=== PATIENT | female | born 1950 | race Hispanic/Latino ===

== ENCOUNTER → 2017-09-07 | Outpatient (CLI) | payer MEDICARE ==
[~2017-09-07] MED LIST: AMLO5TAB2 PO; ASPI-1197 PO; ASPI-555 PO; CARV12.511 PO; CARV25TA PO; CLOP75TA14 PO; DOXY100T2 PO; FURO20TA4 PO; FURO20TA6 PO; INSU200I SQ; Isosorbide Mono 30MG Tab Sr PO; LEVO150T11 PO; LOSA50TA2 PO; LOSA50TA37 PO; METF10004 PO; PANT40TA25 PO; RANO500T2 PO; RANO500T3 PO; SIMV20TA6 PO; SPIR25TA PO; SPIR25TA4 PO; VITAMIN D2 PO
== END | disposition home or self-care (01) ==
LOC: RAH 11:34
PROVIDERS: ATTEND Nurse Practitioner Family
DX: Z12.31 Encounter for screening mammogram for malignant neoplasm of breast (principal); M47.894 Other spondylosis, thoracic region; M51.36 Other intervertebral disc degeneration, lumbar region
CPT/HCPCS: 72070; 72100; 77067

== ENCOUNTER 2017-09-27 23:36 | Inpatient (IN) | payer MEDICARE ==
[~2017-09-27] VITALS: Ht 157.5 cm; Wt 77.4 kg
[2017-09-27] MEDS ORDERED: IOPAMIDOL-370 75 ML VIAL IV ONE (23:48)
[2017-09-28] VITALS (9 sets, daily range): BP systolic 103–128; BP diastolic 43–66
[2017-09-28 00:04] LABS: ABG BASE EXCESS -1.6 mmol/L (-2.0-3.0); ABG HCO3 22.5 mmol/L (21.0-28.0); ABG OXYGEN SATURATION 84.4 % (95.0-99.0); ABG PCO2 36 mmHg (32-45)
[2017-09-28] MEDS ORDERED: FENTANYL CITRATE PF 50 MCG/1 ML 2ML VIAL ONE (00:23)
[2017-09-28] MEDS ORDERED: FUROSEMIDE 10 MG/ML 4ML VIAL ONE ×3 (00:51→16:07)
[2017-09-28 00:59] LABS: CREATININE 0.9 mg/dL (0.5-1.5); POTASSIUM 3.9 mmol/L (3.5-5.1)
[2017-09-28 01:12] LABS: ALBUMIN 2.7 g/dL (3.5-5.0); BILIRUBIN,TOTAL 0.4 mg/dL (0.2-1.0); CREATINE KINASE MB 1.2 ng/mL (0.5-3.6); TOTAL PROTEIN, SERUM 7.5 g/dL (6.0-8.3)
[2017-09-28 01:20] LABS: BASOPHILS % (AUTO) 0.8 % (0.0-5.0); EOSINOPHILS % (AUTO) 0.6 % (0.0-8.0); HEMATOCRIT 35.6 % (36-48); MEAN CORPUSCULAR HEMOGLOBIN 31.1 pg (27.0-33.0); MEAN CORPUSCULAR HGB CONC 33.2 g/dL (32.0-36.0); MEAN CORPUSCULAR VOLUME 93.6 fL (79-99); MONOCYTES % (AUTO) 5.6 % (3.0-13.0); PLATELET COUNT (AUTO) 277 K/uL (130-400); RED CELL DISTRIBUTION WIDTH 13.6 % (11.0-15.5); WHITE BLOOD COUNT (AUTO) 11.9 K/uL (4.8-10.8)
[2017-09-28 01:34] LABS: INR 0.94 (0.85-1.15); PARTIAL THROMBOPLASTIN TIME 27.3 SEC (26.3-35.5); PROTHROMBIN TIME 9.9 SEC (9.6-11.6)
[2017-09-28 02:48] LABS: B-TYPE NATRIURETIC PEPTIDE 220 pg/mL (0-100)
[2017-09-28 03:15] LABS: APPEARANCE,URINE Cloudy (CLEAR); BILIRUBIN,URINE Negative (NEGATIVE); COLOR,URINE Yellow (YELLOW); GLUCOSE, URINE (UA) 500 mg/dL (NEGATIVE); KETONES,URINE Negative (NEGATIVE); LEUKOCYTE ESTERASE ,URINE Negative (NEGATIVE); NITRATE,URINE Negative (NEGATIVE); OCCULT BLOOD,URINE Negative (NEGATIVE); PH,URINE 5.5 (5.0-8.0); PROTEIN,URINE 300 (NEGATIVE); UROBILINOGEN,URINE 0.2 mg/dL (0.2-1.0)
[2017-09-28 03:25] LABS: BACTERIA,URINE Many /HPF (None Seen); MUCUS,URINE None Seen LPF (None Seen); RBC,URINE None Seen /HPF (0-1); SQUAMOUS EPITHELIAL CELL,UR None Seen /LPF (0-2)
[2017-09-28] MEDS ORDERED: DEXTROSE 50%-WATER 50 ML DISP.SYRIN IV PRN (04:00)
[2017-09-28] MEDS ORDERED: NITROGLYCERIN 0.4 MG SL TAB SL PRN (04:00)
[2017-09-28] MEDS ORDERED: GUAIFENESIN-DM 200/20 MG 10 ML PO PRN (04:00)
[2017-09-28] MEDS ORDERED: ACETAMINOPHEN-CODEINE 300/30MG TAB PO PRN ×2 (04:00)
[2017-09-28] MEDS ORDERED: LACTULOSE 20 GM/30 ML UDCUP PO PRN (04:00)
[2017-09-28] MEDS ORDERED: POTASSIUM CHLORIDE 20MEQ/100ML 100 ML IV PRN (04:00)
[2017-09-28] MEDS ORDERED: MORPHINE SULFATE 2 MG/ML 1ML SYG IV PRN (04:00)
[2017-09-28] MEDS ORDERED: DiphenhydrAMINE HCL 50 MG/ML VIAL IV PRN (04:00)
[2017-09-28] MEDS ORDERED: GLUCAGON 1MG KIT 1 MG ML IM PRN (04:00)
[2017-09-28] MEDS ORDERED: ONDANSETRON HCL 4 MG/2 ML VIAL IV PRN (04:00)
[2017-09-28] MEDS ORDERED: HYDRALAZINE HCL 20 MG/ML VIAL IV PRN (04:00)
[2017-09-28] MEDS ORDERED: POTASSIUM CHLORIDE 10% ELIXIR 20 MEQ/15 ML UDCUP PO PRN (04:00)
[2017-09-28] MEDS ORDERED: MORPHINE SULFATE 4 MG/1ML SYG IV PRN (04:00)
[2017-09-28] MEDS ORDERED: LIDOCAINE HCL-MPF 1% 2ML VIAL IVP PRN (04:00)
[2017-09-28] MEDS ORDERED: NITROGLYCERIN 1GM/1 INCH PACKET TD ONE (04:54)
[2017-09-28] MEDS ORDERED: HEPARIN SODIUM 5000UNIT/ML 1ML VIAL ONE (05:08)
[2017-09-28] MEDS ORDERED: HEPARIN 25000 UNITS/250 ML D5W 250 ML IV ONE (05:09)
[2017-09-28 06:15] LABS: HEMATOCRIT 34.7 % (36-48); MEAN CORPUSCULAR HEMOGLOBIN 31.9 pg (27.0-33.0); MEAN CORPUSCULAR HGB CONC 34.3 g/dL (32.0-36.0); MEAN CORPUSCULAR VOLUME 93.1 fL (79-99); NUCLEATED RED BLOOD CELLS 0.1 % (0.0-0.19); PLATELET COUNT (AUTO) 305 K/uL (130-400); RED BLOOD CELL COUNT(AUTO) 3.73 MIL/uL (4.00-5.50); RED CELL DISTRIBUTION WIDTH 13.3 % (11.0-15.5); WHITE BLOOD COUNT (AUTO) 12.3 K/uL (4.8-10.8)
[2017-09-28 06:40] LABS: POTASSIUM 3.9 mmol/L (3.5-5.1)
[2017-09-28 06:41] LABS: CREATINE KINASE MB 15.3 ng/mL (0.5-3.6); CREATININE 0.8 mg/dL (0.5-1.5)
[2017-09-28 06:42] LABS: TROPONIN I 6.76 ng/mL (0.00-0.06)
[2017-09-28 07:21] LABS: ABG BASE EXCESS -0.8 mmol/L (-2.0-3.0); ABG HCO3 23.6 mmol/L (21.0-28.0); ABG OXYGEN SATURATION 99.5 % (95.0-99.0); ABG PCO2 39 mmHg (32-45)
[2017-09-28] MEDS: INSULIN HUMULIN R 100 UNIT/ML 3ML SQ SCH ×4 (07:30→21:47)
[2017-09-28] MEDS ORDERED: ASPIRIN 325 MG TABLET ONE (08:13)
[2017-09-28] MEDS ORDERED: LOSARTAN 50 MG TABLET ONE (08:14)
[2017-09-28] MEDS ORDERED: METOPROLOL TARTRATE 25 MG TAB ONE (08:14)
[2017-09-28] MEDS ORDERED: FAMOTIDINE 20MG TAB 20 MG TAB ONE (08:14)
[2017-09-28] MEDS: FAMOTIDINE 20MG TAB 20 MG TAB PO SCH ×2 (09:00→21:46)
[2017-09-28] MEDS ORDERED: FUROSEMIDE 10 MG/ML 4ML VIAL IVP SCH (09:00)
[2017-09-28] MEDS: ASPIRIN 325 MG TABLET PO SCH (09:00)
[2017-09-28] MEDS: ENOXAPARIN SODIUM 40 MG/0.4 ML SYRINGE SQ SCH (09:00)
[2017-09-28] MEDS: METOPROLOL TARTRATE 25 MG TAB PO SCH ×2 (09:00→21:46)
[2017-09-28 10:51] LABS: INR 0.93 (0.85-1.15); PARTIAL THROMBOPLASTIN TIME 26.4 SEC (26.3-35.5); PROTHROMBIN TIME 9.8 SEC (9.6-11.6)
[2017-09-28 11:02] LABS: TROPONIN I 14.31 ng/mL (0.00-0.06)
[2017-09-28 11:07] LABS: CREATINE KINASE MB 21.4 ng/mL (0.5-3.6)
[2017-09-28] MEDS ORDERED: ASPI-555 PO (15:07)
[2017-09-28] MEDS ORDERED: PANT40TA25 PO (15:07)
[2017-09-28] MEDS ORDERED: SIMV20TA6 PO (15:07)
[2017-09-28] MEDS ORDERED: LEVO150T11 PO (15:07)
[2017-09-28] MEDS ORDERED: METF10004 PO (15:07)
[2017-09-28] MEDS ORDERED: AMLO5TAB2 PO (15:07)
[2017-09-28] MEDS ORDERED: IOPAMIDOL-370 100 ML VIAL IV ONE (15:19)
[2017-09-28] MEDS ORDERED: HEPARIN SODIUM 1000UNIT/ML 10ML VIAL ONE (15:19)
[2017-09-28] MEDS ORDERED: SODIUM BICARB 50MEQ 50ML VIAL ONE (15:19)
[2017-09-28] MEDS ORDERED: NITROGLYCERIN 5 MG/ML 10 ML VIAL IV ONE (15:19)
[2017-09-28] MEDS ORDERED: LIDOCAINE HCL 2% 20ML ONE (15:20)
[2017-09-28] MEDS ORDERED: ISOVUE-370 50ML VIAL IV ONE ×2 (15:20→15:31)
[2017-09-28] MEDS ORDERED: MORPHINE SULFATE 4 MG/1ML SYG ONE (16:10)
[2017-09-28] MEDS ORDERED: MILRINONE-D5W 20 MG/100 ML 100 ML IV ONE (16:14)
[2017-09-28] MEDS: FUROSEMIDE 10 MG/ML 4ML VIAL IV SCH (17:30)
[2017-09-28] MEDS ORDERED: CEFAZOLIN 1GM / D5W 50ML 50 ML IV SCH (18:30)
[2017-09-28] MEDS: ATORVASTATIN CALCIUM 10 MG TABLET PO SCH (21:46)
[2017-09-28] MEDS: SPIRONOLACTONE 25 MG TAB PO SCH (21:46)
[2017-09-29] MEDS: FUROSEMIDE 10 MG/ML 4ML VIAL IV SCH ×2 (00:50→09:09)
[2017-09-29 03:33] VITALS: BP 107/52
[2017-09-29 04:26] LABS: HEMATOCRIT 33.1 % (36-48); MEAN CORPUSCULAR HEMOGLOBIN 31.9 pg (27.0-33.0); MEAN CORPUSCULAR HGB CONC 34.5 g/dL (32.0-36.0); MEAN CORPUSCULAR VOLUME 92.6 fL (79-99); PLATELET COUNT (AUTO) 294 K/uL (130-400); RED BLOOD CELL COUNT(AUTO) 3.58 MIL/uL (4.00-5.50); RED CELL DISTRIBUTION WIDTH 13.5 % (11.0-15.5); WHITE BLOOD COUNT (AUTO) 10.4 K/uL (4.8-10.8)
[2017-09-29 04:41] LABS: B-TYPE NATRIURETIC PEPTIDE 474 pg/mL (0-100)
[2017-09-29 04:53] LABS: ALBUMIN 2.5 g/dL (3.5-5.0); CREATININE 1.1 mg/dL (0.5-1.5); POTASSIUM 3.5 mmol/L (3.5-5.1); THYROID STIMULATING HORMONE 4.03 uIU/mL (0.36-3.74)
[2017-09-29] MEDS ORDERED: CEFAZOLIN 1GM / D5W 50ML 50 ML IV SCH (06:00)
[2017-09-29] MEDS: POTASSIUM CHLORIDE 20 MEQ ERTAB PO PRN ×3 (06:04→12:59)
[2017-09-29] MEDS: INSULIN HUMULIN R 100 UNIT/ML 3ML SQ SCH ×4 (06:17→22:12)
[2017-09-29 08:12] VITALS: BP 115/49
[2017-09-29] MEDS ORDERED: ATORVASTATIN CALCIUM 40 MG TABLET PO SCH (09:00)
[2017-09-29] MEDS: ENOXAPARIN SODIUM 40 MG/0.4 ML SYRINGE SQ SCH (09:06)
[2017-09-29] MEDS: ASPIRIN 325 MG TABLET PO SCH (09:07)
[2017-09-29] MEDS: METOPROLOL TARTRATE 25 MG TAB PO SCH ×2 (09:07→22:04)
[2017-09-29] MEDS: SPIRONOLACTONE 25 MG TAB PO SCH ×2 (09:07→22:04)
[2017-09-29] MEDS: FAMOTIDINE 20MG TAB 20 MG TAB PO SCH ×2 (09:08→22:04)
[2017-09-29] MEDS: LOSARTAN 50 MG TABLET PO SCH (09:08)
[2017-09-29 11:55] VITALS: BP 131/63
[2017-09-29] MEDS: MILRINONE-D5W 20 MG/100 ML 100 ML IV SCH ×2 (12:59→23:11)
[2017-09-29 16:00] VITALS: BP 114/52
[2017-09-29 19:23] VITALS: BP 115/55
[2017-09-29] MEDS: ATORVASTATIN CALCIUM 10 MG TABLET PO SCH (22:04)
[2017-09-29 23:38] VITALS: BP 116/63
[2017-09-30 03:40] LABS: CREATININE 1.2 mg/dL (0.5-1.5); POTASSIUM 3.9 mmol/L (3.5-5.1)
[2017-09-30 04:00] VITALS: BP 94/46
[2017-09-30] MEDS: INSULIN HUMULIN R 100 UNIT/ML 3ML SQ SCH ×4 (06:57→21:04)
[2017-09-30 07:00] VITALS: BP 115/52
[2017-09-30] MEDS: LOSARTAN 50 MG TABLET PO SCH (08:00)
[2017-09-30] MEDS: SPIRONOLACTONE 25 MG TAB PO SCH ×2 (08:00→21:02)
[2017-09-30] MEDS: METOPROLOL TARTRATE 25 MG TAB PO SCH (08:00)
[2017-09-30] MEDS: ASPIRIN 325 MG TABLET PO SCH (08:00)
[2017-09-30] MEDS: FAMOTIDINE 20MG TAB 20 MG TAB PO SCH ×2 (08:00→21:01)
[2017-09-30] MEDS: ENOXAPARIN SODIUM 40 MG/0.4 ML SYRINGE SQ SCH (08:01)
[2017-09-30] MEDS: CLOPIDOGREL BISULFATE 75 MG TAB PO SCH (09:47)
[2017-09-30] MEDS: METOPROLOL TARTRATE 50 MG TAB PO SCH ×2 (09:47→21:02)
[2017-09-30] MEDS: FUROSEMIDE 40 MG TABLET PO SCH (09:47)
[2017-09-30 11:00] VITALS: BP 108/52
[2017-09-30 16:00] VITALS: BP 119/54
[2017-09-30 20:00] VITALS: BP 126/60
[2017-09-30] MEDS: ATORVASTATIN CALCIUM 10 MG TABLET PO SCH (21:02)
[2017-10-01] VITALS: BP 91/54
[2017-10-01 04:00] VITALS: BP 121/78
[2017-10-01] MEDS: INSULIN HUMULIN R 100 UNIT/ML 3ML SQ SCH ×3 (06:49→17:27)
[2017-10-01 07:38] VITALS: BP 111/58
[2017-10-01] MEDS: SPIRONOLACTONE 25 MG TAB PO SCH (09:09)
[2017-10-01] MEDS: LOSARTAN 50 MG TABLET PO SCH (09:09)
[2017-10-01] MEDS: CLOPIDOGREL BISULFATE 75 MG TAB PO SCH (09:09)
[2017-10-01] MEDS: ASPIRIN 325 MG TABLET PO SCH (09:09)
[2017-10-01] MEDS: FUROSEMIDE 40 MG TABLET PO SCH (09:10)
[2017-10-01] MEDS: METOPROLOL TARTRATE 50 MG TAB PO SCH (09:10)
[2017-10-01] MEDS: FAMOTIDINE 20MG TAB 20 MG TAB PO SCH (09:10)
[2017-10-01] MEDS: ENOXAPARIN SODIUM 40 MG/0.4 ML SYRINGE SQ SCH (09:11)
[2017-10-01] MEDS ORDERED: RANOLAZINE 500 MG TAB.SR.12H PO SCH (10:15)
[2017-10-01] MEDS ORDERED: ISOSORBIDE MONO 30MG TAB SR PO SCH (10:15)
[2017-10-01] MEDS ORDERED: FURO20TA6 PO (10:20)
[2017-10-01] MEDS ORDERED: Isosorbide Mono 30MG Tab Sr PO (10:20)
[2017-10-01] MEDS ORDERED: RANO500T2 PO (10:20)
[2017-10-01] MEDS ORDERED: CLOP75TA14 PO (10:20)
[2017-10-01] MEDS ORDERED: LOSA50TA2 PO (10:20)
[2017-10-01] MEDS ORDERED: CARV12.511 PO (10:20)
[2017-10-01] MEDS ORDERED: SPIR25TA PO (10:20)
[2017-10-01 11:28] VITALS: BP 100/64
[2017-10-01 16:39] VITALS: BP 122/57
[2017-10-02] MEDS ORDERED: ASPIRIN 81 MG EC TAB PO SCH (09:00)
[2017-10-02] MEDS ORDERED: FUROSEMIDE 20 MG TABLET PO SCH (09:00)
[2018-01-09] MEDS ORDERED: SPIR25TA4 PO (14:41)
[2018-01-09] MEDS ORDERED: PANT40TA25 PO (14:41)
[2018-01-09] MEDS ORDERED: LOSA50TA37 PO (14:41)
[2018-01-09] MEDS ORDERED: SIMV20TA6 PO (14:41)
[2018-01-09] MEDS ORDERED: CARV25TA PO (14:41)
[2018-01-09] MEDS ORDERED: VITAMIN D2 PO (14:41)
[2018-01-09] MEDS ORDERED: RANO500T3 PO (14:41)
[2018-01-09] MEDS ORDERED: ASPI-1197 PO (14:41)
[2018-01-09] MEDS ORDERED: INSU200I SQ ×2 (14:41)
[2018-01-09] MEDS ORDERED: FURO20TA4 PO (14:41)
[2018-01-09] MEDS ORDERED: LEVO150T11 PO (14:45)
[2018-01-09] MEDS ORDERED: METF10004 PO (14:45)
== END 2017-10-01 18:27 | disposition home or self-care (01) | DRG 280 ==
LOC: EDH 23:36 → EDHIP 09-28 03:03 → 2BH 09-28 08:51 → 2AH 09-30 20:57
PROVIDERS: ADMIT Family Medicine; ATTEND Family Medicine
PROC: 4A023N7 Measurement of Cardiac Sampling and Pressure, Left Heart, Percutaneous Approach (ICD-10-PCS; principal; 2017-09-28)
PROC: B2111ZZ Fluoroscopy of Multiple Coronary Arteries using Low Osmolar Contrast (ICD-10-PCS; 2017-09-28)
PROC: B3101ZZ Fluoroscopy of Thoracic Aorta using Low Osmolar Contrast (ICD-10-PCS; 2017-09-28)
PROC: B2151ZZ Fluoroscopy of Left Heart using Low Osmolar Contrast (ICD-10-PCS; 2017-09-28)
DX: I21.4 Non-ST elevation (NSTEMI) myocardial infarction (principal); J96.01 Acute respiratory failure with hypoxia; I50.43 Acute on chronic combined systolic (congestive) and diastolic (congestive) heart failure; I25.110 Atherosclerotic heart disease of native coronary artery with unstable angina pectoris; I11.0 Hypertensive heart disease with heart failure; E03.9 Hypothyroidism, unspecified; E11.65 Type 2 diabetes mellitus with hyperglycemia; E66.9 Obesity, unspecified; E78.5 Hyperlipidemia, unspecified; F17.200 Nicotine dependence, unspecified, uncomplicated; I25.5 Ischemic cardiomyopathy; I44.7 Left bundle-branch block, unspecified; R79.1 Abnormal coagulation profile; Z79.82 Long term (current) use of aspirin; Z95.1 Presence of aortocoronary bypass graft; Z68.31 Body mass index [BMI] 31.0-31.9, adult; Z71.6 Tobacco abuse counseling
CPT/HCPCS: 36221; 36415; 36600; 71045; 71046; 80048; 80053; 80061; 81001; 82550; 82553; 82803; 82948; 83874; 83880; 84436; 84443; 84479; 84484; 85025; 85027; 85347; 85378; 85610; 85730; 93005; 93306; 93458; 94660; 99291; C1894; J0690; J1644; J1650; J1815; J1940; J2260; J2270; J3010; J3490; Q9967

== ENCOUNTER → 2017-11-10 | Outpatient (CLI) | payer MEDICARE ==
[~2017-11-10] MED LIST changes: -SPIR25TA4 PO; +SPIR25TA6 PO
== END | disposition home or self-care (01) ==
LOC: SHCH 09:19
PROVIDERS: ATTEND Internal Medicine Cardiovascular Disease
DX: I25.10 Atherosclerotic heart disease of native coronary artery without angina pectoris (principal); I25.5 Ischemic cardiomyopathy
CPT/HCPCS: 93306

== ENCOUNTER 2018-01-11 10:00 | Observation (INO) | payer MEDICARE ==
[2018-01-09 10:00] VITALS: BP 156/81
[2018-01-09 10:08] LABS: EOSINOPHILS % (AUTO) 1.5 % (0.0-8.0); HEMATOCRIT 31.9 % (36-48); LYMPHOCYTES % (AUTO) 27.2 % (21.0-51.0); MEAN CORPUSCULAR HEMOGLOBIN 31.7 pg (27.0-33.0); MEAN CORPUSCULAR HGB CONC 33.4 g/dL (32.0-36.0); MEAN CORPUSCULAR VOLUME 94.9 fL (79-99); MONOCYTES % (AUTO) 6.2 % (3.0-13.0); NEUTROPHILS % (AUTO) 64.1 % (40.0-77.0); PLATELET COUNT (AUTO) 242 K/uL (130-400); RED BLOOD CELL COUNT(AUTO) 3.36 MIL/uL (4.00-5.50); RED CELL DISTRIBUTION WIDTH 14.1 % (11.0-15.5); WHITE BLOOD COUNT (AUTO) 8.4 K/uL (4.8-10.8)
[2018-01-09 10:12] LABS: CREATININE 1.2 mg/dL (0.5-1.5); POTASSIUM 5.3 mmol/L (3.5-5.1)
[2018-01-09 10:20] LABS: INR 0.93 (0.85-1.15); PARTIAL THROMBOPLASTIN TIME 26.2 SEC (26.3-35.5); PROTHROMBIN TIME 9.8 SEC (9.6-11.6)
[2018-01-11] VITALS (10 sets, daily range): BP systolic 82–140; BP diastolic 33–78
[~2018-01-11] VITALS: Ht 160 cm; Wt 76.2 kg
[~2018-01-11 10:00] MED LIST changes: -AMLO5TAB2 PO; -ASPI-555 PO; -CARV12.511 PO; -DOXY100T2 PO; -FURO20TA6 PO; -Isosorbide Mono 30MG Tab Sr PO; -LOSA50TA2 PO; -RANO500T2 PO; +SODIUM CHLORIDE 0.9% 1000ML 1,000 ML IV SCH; -SPIR25TA PO
[2018-01-11] MEDS ORDERED: OCTYL 2-CYANOACRYLATE 1 EACH TP ONE (16:33)
[2018-01-11] MEDS ORDERED: CEFAZOLIN 1GM / D5W 50ML 150 ML ONE (16:33)
[2018-01-11] MEDS ORDERED: BUPIVACAINE/PF 0.25% 30ML VIAL IJ ONE (16:33)
[2018-01-11] MEDS ORDERED: LIDOCAINE HCL MPF 1% 5ML VIAL ONE (16:34)
[2018-01-11] MEDS ORDERED: MIDAZOLAM HCL 1 MG/ML 2ML VIAL ONE ×3 (16:34→18:15)
[2018-01-11] MEDS ORDERED: MEPERIDINE-PF 25 MG/ML SYG ONE ×3 (16:34→18:16)
[2018-01-11] MEDS ORDERED: IODIXANOL 320 MG/ML 100 ML VIAL ONE (16:49)
[2018-01-11] MEDS ORDERED: IOHEXOL-350 50ML VIAL IV ONE (16:51)
[2018-01-11] MEDS ORDERED: DOXY100T2 PO (18:58)
[2018-01-11] MEDS ORDERED: TEMAZEPAM 30 MG CAP PO PRN (19:00)
[2018-01-11] MEDS ORDERED: ONDANSETRON HCL 4 MG/2 ML VIAL IV PRN (19:00)
[2018-01-11] MEDS ORDERED: ACETAMINOPHEN 325 MG TAB PO PRN ×2 (19:00)
[2018-01-11] MEDS ORDERED: ACETAMINOPHEN-CODEINE 300/30MG TAB PO PRN ×2 (19:00)
[2018-01-11] MEDS: METFORMIN HCL 500 MG TABLET PO SCH (19:51)
[2018-01-11] MEDS: RANOLAZINE 500 MG TAB.SR.12H PO SCH (20:59)
[2018-01-11] MEDS ORDERED: INSULIN LISPRO 100 UNIT/ML 3ML SQ SCH (21:00)
[2018-01-11] MEDS ORDERED: ATORVASTATIN CALCIUM 10 MG TABLET PO SCH (21:00)
[2018-01-11] MEDS: CARVEDILOL 25 MG TABLET PO SCH (21:04)
[2018-01-11] MEDS ORDERED: MORPHINE SULFATE 2 MG/ML 1ML SYG IM PRN (22:45)
[2018-01-11] MEDS ORDERED: MORPHINE SULFATE 4 MG/1ML SYG IV PRN (22:45)
[2018-01-12] MEDS ORDERED: MORPHINE SULFATE 2 MG/ML 1ML SYG IV PRN (02:45)
[2018-01-12] MEDS ORDERED: MORPHINE SULFATE 2 MG/ML 1ML SYG IVP PRN (03:15)
[2018-01-12 03:49] VITALS: BP 104/50
[2018-01-12] MEDS ORDERED: LEVOTHYROXINE 150 MCG TABLET PO SCH (06:30)
[2018-01-12 07:00] VITALS: BP 139/85
[2018-01-12] MEDS: RANOLAZINE 500 MG TAB.SR.12H PO SCH (08:23)
[2018-01-12] MEDS: METFORMIN HCL 500 MG TABLET PO SCH (08:24)
[2018-01-12 08:25] VITALS: BP 104/54
[2018-01-12] MEDS: CARVEDILOL 25 MG TABLET PO SCH (08:25)
[2018-01-12] MEDS ORDERED: INSULIN LISPRO 100 UNIT/ML 3ML SQ SCH (09:00)
[2018-01-12] MEDS ORDERED: CEFAZOLIN SODIUM 1 GM VIAL IVP SCH (09:00)
[2018-01-12] MEDS ORDERED: ASPIRIN 81MG TAB.CHEW PO SCH (09:00)
[2018-01-12] MEDS ORDERED: CEFAZOLIN 1GM / D5W 50ML 50 ML IV SCH (09:00)
[2018-01-12] MEDS ORDERED: FUROSEMIDE 20 MG TABLET PO SCH (09:00)
[2018-01-12] MEDS ORDERED: PANTOPRAZOLE SODIUM 40 MG TABLET.DR PO SCH (09:00)
[2018-01-12] MEDS ORDERED: LOSARTAN 50 MG TABLET PO SCH (09:00)
[2018-01-12] MEDS ORDERED: CLOPIDOGREL BISULFATE 75 MG TAB PO SCH (09:00)
[2018-01-12] MEDS ORDERED: SPIRONOLACTONE 25 MG TAB PO SCH (09:00)
[2018-01-18] MEDS ORDERED: VITAMIN D2 1.25 MG PO SCH (09:00)
== END 2018-01-12 09:45 | disposition home or self-care (01) ==
LOC: DAH 10:00 → DAHIP 10:01 → DAH 10:01 → 2AH 19:42
PROVIDERS: ADMIT Internal Medicine Cardiovascular Disease; ATTEND Internal Medicine Cardiovascular Disease
DX: I44.7 Left bundle-branch block, unspecified (principal); I25.110 Atherosclerotic heart disease of native coronary artery with unstable angina pectoris; E66.9 Obesity, unspecified; E78.5 Hyperlipidemia, unspecified; I11.0 Hypertensive heart disease with heart failure; I50.43 Acute on chronic combined systolic (congestive) and diastolic (congestive) heart failure; I25.2 Old myocardial infarction; F17.210 Nicotine dependence, cigarettes, uncomplicated; Z79.899 Other long term (current) drug therapy
CPT/HCPCS: 33225; 33249; 36415; 71046; 80048; 82948 ×4; 85025; 85610; 85730; 93005 ×2; 96374; 96375; A4218; C1769 ×2; C1882; C1894; C1895 ×2; C1900; G0378 ×24; J0690 ×2; J2175 ×3; J2250 ×3; J3490 ×2; J7030; Q9967; 99156; 99157

== ENCOUNTER → 2018-05-24 | Outpatient (CLI) | payer MEDICARE ==
[~2018-05-24] MED LIST changes: +DOXY100T2 PO; +LOSA50TA25 PO; -LOSA50TA37 PO; +METF-446 PO; -METF10004 PO; -SODIUM CHLORIDE 0.9% 1000ML 1,000 ML IV SCH
== END | disposition home or self-care (01) ==
LOC: SHCH 14:11
PROVIDERS: ATTEND Internal Medicine Cardiovascular Disease
DX: I73.9 Peripheral vascular disease, unspecified (principal); I25.10 Atherosclerotic heart disease of native coronary artery without angina pectoris; I10 Essential (primary) hypertension; M17.0 Bilateral primary osteoarthritis of knee
CPT/HCPCS: 93925

== ENCOUNTER → 2018-10-25 | Outpatient (CLI) | payer MEDICARE ==
[~2018-10-25] MED LIST changes: -LOSA50TA25 PO; +LOSA50TA64 PO
== END | disposition home or self-care (01) ==
LOC: SHCH 09:47
PROVIDERS: ATTEND Internal Medicine Cardiovascular Disease
DX: I65.23 Occlusion and stenosis of bilateral carotid arteries (principal)
CPT/HCPCS: 93880

== ENCOUNTER → 2019-05-25 | Outpatient (CLI) | payer MEDICARE ==
[~2019-05-25] MED LIST changes: -DOXY100T2 PO; +LEVO500T2 PO; +SIMV-43 PO; -SIMV20TA6 PO
== END | disposition home or self-care (01) ==
LOC: RAH 14:02
PROVIDERS: ATTEND Nurse Practitioner Family
DX: Z12.31 Encounter for screening mammogram for malignant neoplasm of breast (principal)
CPT/HCPCS: 77067

== ENCOUNTER → 2020-12-30 | Outpatient (CLI) | payer MEDICARE ==
[~2020-12-30] MED LIST changes: +CEPH500B PO; +DOXY100T2 PO; -FURO20TA4 PO; +FURO40TA7 PO; +INS7030 SQ; -INSU200I SQ; +IPRA3AMP24 IH; -LEVO500T2 PO; -PANT40TA25 PO; +PANT40TA54 PO; +PRED10B PO
== END | disposition home or self-care (01) ==
LOC: SHCH 09:15
PROVIDERS: ATTEND Internal Medicine Cardiovascular Disease
DX: R01.1 Cardiac murmur, unspecified (principal); I70.292 Other atherosclerosis of native arteries of extremities, left leg; I70.293 Other atherosclerosis of native arteries of extremities, bilateral legs
CPT/HCPCS: 93925

== ENCOUNTER → 2021-01-11 | Outpatient (CLI) | payer MEDICARE | END | disposition home or self-care (01) | LOC: SHCH 09:31 | PROVIDERS: ATTEND Internal Medicine Cardiovascular Disease | DX: I08.0 Rheumatic disorders of both mitral and aortic valves (principal); R55 Syncope and collapse; I73.9 Peripheral vascular disease, unspecified; R01.1 Cardiac murmur, unspecified | CPT/HCPCS: 93306; 93356 ==

== ENCOUNTER → 2021-06-17 | Outpatient (CLI) | payer MEDICARE | END | disposition home or self-care (01) | LOC: SHCH 10:37 | PROVIDERS: ATTEND Internal Medicine Cardiovascular Disease | DX: I08.3 Combined rheumatic disorders of mitral, aortic and tricuspid valves (principal); I27.20 Pulmonary hypertension, unspecified; I31.3 Pericardial effusion (noninflammatory); I11.9 Hypertensive heart disease without heart failure; E11.9 Type 2 diabetes mellitus without complications; E78.5 Hyperlipidemia, unspecified | CPT/HCPCS: 93005; 93306; 93356 ==

== ENCOUNTER → 2021-06-23 | Outpatient (CLI) | payer MEDICARE ==
[~2021-06-23] VITALS: Ht 157.5 cm; Wt 69.4 kg
[~2021-06-23] MED LIST changes: +REGADENOSON 0.4 MG/5 ML PF SYG IVP SCH
== END | disposition home or self-care (01) ==
LOC: SHCH 08:22
PROVIDERS: ATTEND Internal Medicine Cardiovascular Disease
DX: I25.5 Ischemic cardiomyopathy (principal); R06.00 Dyspnea, unspecified
CPT/HCPCS: 78452; 93017; 96374; A9500 ×2; J2785

== ENCOUNTER 2021-11-11 19:17 | Observation (INO) | payer MEDICARE ==
[~2021-11-11] VITALS: Ht 157.5 cm; Wt 71.7 kg
[~2021-11-11 19:17] MED LIST changes: -REGADENOSON 0.4 MG/5 ML PF SYG IVP SCH
[2021-11-11 19:45] LABS: BASOPHILS % (AUTO) 0.9 % (0.0-5.0); EOSINOPHILS % (AUTO) 1.2 % (0.0-8.0); HEMATOCRIT 31.6 % (36-48); MEAN CORPUSCULAR HEMOGLOBIN 29.1 pg (27.0-33.0); MEAN CORPUSCULAR HGB CONC 32.6 g/dL (32.0-36.0); MEAN CORPUSCULAR VOLUME 89.3 fL (79-99); MONOCYTES % (AUTO) 9.7 % (3.0-13.0); NEUTROPHILS % (AUTO) 70.9 % (40.0-77.0); PLATELET COUNT (AUTO) 193 K/uL (130-400); RED BLOOD CELL COUNT(AUTO) 3.54 MIL/uL (4.00-5.50); RED CELL DISTRIBUTION WIDTH 16.2 % (11.0-15.5); WHITE BLOOD COUNT (AUTO) 6.7 K/uL (4.8-10.8)
[2021-11-11 19:55] LABS: CREATININE 1.6 mg/dL (0.5-1.5); POTASSIUM 4.3 mmol/L (3.5-5.1)
[2021-11-11 20:08] LABS: ALBUMIN 2.9 g/dL (3.5-5.0); BILIRUBIN,TOTAL 0.8 mg/dL (0.2-1.0); TOTAL PROTEIN, SERUM 7.6 g/dL (6.0-8.3)
[2021-11-11] MEDS ORDERED: ONDANSETRON 4MG INJ ONE (20:30)
[2021-11-11] MEDS ORDERED: MORPHINE 2 MG SYG ONE (20:30)
[2021-11-11] MEDS ORDERED: FAMOTIDINE 20MG VIAL IV ONE (20:31)
[2021-11-11] MEDS: ONDANSETRON 4MG INJ IVP SCH ×2 (20:57→21:37)
[2021-11-11] MEDS: MORPHINE 2 MG SYG IVP SCH ×2 (20:58→21:37)
[2021-11-11] MEDS: FAMOTIDINE 20MG VIAL IV SCH ×2 (20:58→21:37)
[2021-11-11] MEDS ORDERED: ASPIRIN 325MG TAB PO SCH (21:00)
[2021-11-11] MEDS ORDERED: ACETAMINOPHEN 325 MG TAB PO PRN ×2 (22:00)
[2021-11-11] MEDS ORDERED: 0.9%NACL 1000ML 1,000 ML IV SCH ×2 (22:00)
[2021-11-11] MEDS ORDERED: MORPHINE 2 MG SYG IV PRN ×2 (22:00)
[2021-11-11] MEDS ORDERED: ONDANSETRON 4MG INJ IV PRN (22:00)
[2021-11-11 22:13] LABS: INR 1.09 (0.85-1.15); PROTHROMBIN TIME 11.8 SEC (9.6-11.6)
[2021-11-11 22:15] LABS: PARTIAL THROMBOPLASTIN TIME 27.6 SEC (26.3-35.5)
[2021-11-11 23:30] VITALS: BP 106/56
[2021-11-12] MEDS ORDERED: CARV12.511 PO (00:23)
[2021-11-12] MEDS ORDERED: FURO40TA5 PO ×3 (00:23→16:57)
[2021-11-12] MEDS ORDERED: SIMV80TA91 PO (00:23)
[2021-11-12] MEDS ORDERED: FUROSEMIDE 40MG VIAL IV SCH (03:30)
[2021-11-12 04:00] VITALS: BP 151/50
[2021-11-12] MEDS ORDERED: FUROSEMIDE 20MG VIAL IV SCH (04:00)
[2021-11-12 05:05] LABS: BASOPHILS % (AUTO) 0.9 % (0.0-5.0); EOSINOPHILS % (AUTO) 1.9 % (0.0-8.0); HEMATOCRIT 31.9 % (36-48); LYMPHOCYTES % (AUTO) 24.5 % (21.0-51.0); MEAN CORPUSCULAR HEMOGLOBIN 28.7 pg (27.0-33.0); MEAN CORPUSCULAR HGB CONC 31.7 g/dL (32.0-36.0); MEAN CORPUSCULAR VOLUME 90.6 fL (79-99); MONOCYTES % (AUTO) 9.8 % (3.0-13.0); NEUTROPHILS % (AUTO) 62.4 % (40.0-77.0); PLATELET COUNT (AUTO) 195 K/uL (130-400); RED BLOOD CELL COUNT(AUTO) 3.52 MIL/uL (4.00-5.50); RED CELL DISTRIBUTION WIDTH 16.2 % (11.0-15.5); WHITE BLOOD COUNT (AUTO) 6.4 K/uL (4.8-10.8)
[2021-11-12 06:09] LABS: ERYTHROCYTE SEDIMENTATION RATE 57 MM/HR (0-30)
[2021-11-12] MEDS: INSULIN HUMULIN R 100 UNIT/ML 3ML SQ SCH ×3 (06:44→17:04)
[2021-11-12] MEDS ORDERED: LEVOTHYROXINE 150 MCG TABLET PO SCH (07:30)
[2021-11-12 08:25] VITALS: BP 120/50
[2021-11-12] MEDS ORDERED: CLOPIDOGREL 75MG TAB PO SCH (09:00)
[2021-11-12] MEDS: INSULIN LISPRO 100 UNIT/ML 3ML SQ SCH ×2 (09:00→14:01)
[2021-11-12] MEDS ORDERED: FAMOTIDINE 20MG VIAL IV SCH ×2 (09:00)
[2021-11-12] MEDS ORDERED: HEPARIN 5,000 UNIT VIAL SQ SCH (09:00)
[2021-11-12] MEDS ORDERED: CARVEDILOL 12.5 MG TABLET PO SCH (09:00)
[2021-11-12 09:58] LABS: CREATININE 1.8 mg/dL (0.5-1.5); POTASSIUM 4.9 mmol/L (3.5-5.1)
[2021-11-12 11:20] VITALS: BP 130/47
[2021-11-12] MEDS ORDERED: DiphenhydrAMINE HCL 50 MG/ML VIAL IV PRN (12:00)
[2021-11-12] MEDS ORDERED: RANOLAZINE 500 MG TAB.SR.12H PO SCH (13:00)
[2021-11-12] MEDS ORDERED: NAPROXEN 250 MG TAB PO SCH (13:00)
[2021-11-12 15:50] VITALS: BP 109/42
[2021-11-12] MEDS ORDERED: NAPR-1192 PO (17:45)
[2021-11-12] MEDS ORDERED: DAPA10TA PO (17:46)
[2021-11-12] MEDS ORDERED: FUROSEMIDE 40 MG TABLET PO SCH (18:00)
[2021-11-12] MEDS ORDERED: ATORVASTATIN 40 MG TABLET PO SCH (21:00)
[2021-11-12] MEDS ORDERED: INSULIN GLARGINE 100 UNITS/ML 10 ML VIAL SQ SCH (21:00)
[2021-11-13] MEDS ORDERED: FUROSEMIDE 40 MG TABLET PO SCH (09:00)
== END 2021-11-12 18:30 | disposition home or self-care (01) ==
LOC: EDH 19:17 → EDHIP 21:51 → 3DH 23:21
PROVIDERS: ADMIT Internal Medicine; ATTEND Internal Medicine
DX: I25.5 Ischemic cardiomyopathy (principal); I13.0 Hypertensive heart and chronic kidney disease with heart failure and stage 1 through stage 4 chronic kidney disease, or unspecified chronic kidney disease; I50.43 Acute on chronic combined systolic (congestive) and diastolic (congestive) heart failure; N18.30 Chronic kidney disease, stage 3 unspecified; E11.22 Type 2 diabetes mellitus with diabetic chronic kidney disease; D63.1 Anemia in chronic kidney disease; E11.51 Type 2 diabetes mellitus with diabetic peripheral angiopathy without gangrene; E11.65 Type 2 diabetes mellitus with hyperglycemia; I21.4 Non-ST elevation (NSTEMI) myocardial infarction; I25.10 Atherosclerotic heart disease of native coronary artery without angina pectoris; R77.8 Other specified abnormalities of plasma proteins; I25.2 Old myocardial infarction; I44.7 Left bundle-branch block, unspecified; N17.9 Acute kidney failure, unspecified; E03.9 Hypothyroidism, unspecified; E78.00 Pure hypercholesterolemia, unspecified; E78.5 Hyperlipidemia, unspecified; Z79.02 Long term (current) use of antithrombotics/antiplatelets; Z79.4 Long term (current) use of insulin; Z79.82 Long term (current) use of aspirin; Z79.890 Hormone replacement therapy; Z79.899 Other long term (current) drug therapy; Z87.891 Personal history of nicotine dependence; Z98.890 Other specified postprocedural states; Z95.810 Presence of automatic (implantable) cardiac defibrillator; W10.9XXA Fall (on) (from) unspecified stairs and steps, initial encounter
CPT/HCPCS: 36415 ×2; 71045; 80048; 80053; 82550 ×2; 82948 ×3; 83036; 83690; 83880 ×2; 84484 ×3; 85025 ×2; 85610; 85651; 85730; 93005 ×3; 96361 ×2; 96374; 96375 ×2; 96376; 97039; 97116; 97161; 99285; G0378 ×19; J1815 ×2; J1940; J2405 ×2; J3490 ×2; J7030

== ENCOUNTER → 2022-04-09 | Outpatient (CLI) | payer MEDICARE ==
[~2022-04-09] MED LIST changes: +CARV12.511 PO; -CARV25TA PO; -CEPH500B PO; +DAPA10TA PO; -DOXY100T2 PO; +FURO40TA5 PO; -FURO40TA7 PO; -IPRA3AMP24 IH; -METF-446 PO; +NAPR-1192 PO; -PRED10B PO; -SIMV-43 PO; +SIMV80TA91 PO; -SPIR25TA6 PO; -VITAMIN D2 PO
== END | disposition home or self-care (01) ==
LOC: OIH 09:40
PROVIDERS: ATTEND Internal Medicine Cardiovascular Disease
DX: I73.9 Peripheral vascular disease, unspecified (principal); L97.919 Non-pressure chronic ulcer of unspecified part of right lower leg with unspecified severity
CPT/HCPCS: 93925

== ENCOUNTER 2022-06-03 12:32 | Inpatient (IN) | payer MEDICARE ==
[~2022-06-03] VITALS: Ht 157.5 cm; Wt 69.9 kg
[~2022-06-03 12:32] MED LIST changes: +CLOP-31 PO; -CLOP75TA14 PO
[2022-06-03] MEDS ORDERED: ZOSYN 3.375GM +NS 50ML IV SCH (15:30)
[2022-06-03 15:57] LABS: BASOPHILS % (AUTO) 0.5 % (0.0-5.0); EOSINOPHILS % (AUTO) 0.9 % (0.0-8.0); HEMATOCRIT 33.7 % (36-48); LYMPHOCYTES % (AUTO) 17.6 % (21.0-51.0); MEAN CORPUSCULAR HEMOGLOBIN 30.6 pg (27.0-33.0); MEAN CORPUSCULAR HGB CONC 33.8 g/dL (32.0-36.0); MEAN CORPUSCULAR VOLUME 90.3 fL (79-99); MONOCYTES % (AUTO) 6.9 % (3.0-13.0); NEUTROPHILS % (AUTO) 73.7 % (40.0-77.0); PLATELET COUNT (AUTO) 192 K/uL (130-400); RED BLOOD CELL COUNT(AUTO) 3.73 MIL/uL (4.00-5.50); RED CELL DISTRIBUTION WIDTH 13.5 % (11.0-15.5); WHITE BLOOD COUNT (AUTO) 7.4 K/uL (4.8-10.8)
[2022-06-03 16:05] LABS: CREATININE 2.3 mg/dL (0.5-1.5); POTASSIUM 4.6 mmol/L (3.5-5.1)
[2022-06-03 16:07] LABS: PROTHROMBIN TIME 10.9 SEC (9.6-11.6)
[2022-06-03 16:10] LABS: ALBUMIN 2.9 g/dL (3.5-5.0)
[2022-06-03] MEDS: INSULIN HUMULIN R 100 UNIT/ML 3ML SQ SCH ×4 (16:30→21:53)
[2022-06-03] MEDS: ZOSYN 3.375GM +NS 50ML IV SCH (16:47)
[2022-06-03] MEDS: HEPARIN 5,000 UNIT VIAL SQ SCH (16:47)
[2022-06-03 17:00] VITALS: BP 137/60
[2022-06-03] MEDS ORDERED: FURO40TA5 PO (17:31)
[2022-06-03 20:25] VITALS: BP 97/44
[2022-06-03] MEDS: FAMOTIDINE 20MG TAB PO SCH (21:52)
[2022-06-03 23:34] VITALS: BP 105/41
[2022-06-04 02:52] VITALS: BP 110/58
[2022-06-04] MEDS: ZOSYN 3.375GM +NS 50ML IV SCH ×2 (03:48→16:58)
[2022-06-04] MEDS: HEPARIN 5,000 UNIT VIAL SQ SCH ×2 (03:49→17:01)
[2022-06-04 03:50] LABS: BASOPHILS % (AUTO) 0.9 % (0.0-5.0); EOSINOPHILS % (AUTO) 1.2 % (0.0-8.0); HEMATOCRIT 31.5 % (36-48); LYMPHOCYTES % (AUTO) 21.9 % (21.0-51.0); MEAN CORPUSCULAR HEMOGLOBIN 30.8 pg (27.0-33.0); MEAN CORPUSCULAR HGB CONC 33.7 g/dL (32.0-36.0); MEAN CORPUSCULAR VOLUME 91.6 fL (79-99); MONOCYTES % (AUTO) 11.5 % (3.0-13.0); NEUTROPHILS % (AUTO) 64.2 % (40.0-77.0); PLATELET COUNT (AUTO) 184 K/uL (130-400); RED BLOOD CELL COUNT(AUTO) 3.44 MIL/uL (4.00-5.50); RED CELL DISTRIBUTION WIDTH 13.7 % (11.0-15.5); WHITE BLOOD COUNT (AUTO) 6.7 K/uL (4.8-10.8)
[2022-06-04 04:08] LABS: ALBUMIN 2.6 g/dL (3.5-5.0); CREATININE 2.3 mg/dL (0.5-1.5); MAGNESIUM 1.7 mg/dL (1.80-2.40); POTASSIUM 4.5 mmol/L (3.5-5.1); TOTAL PROTEIN, SERUM 7.2 g/dL (6.0-8.3)
[2022-06-04] MEDS: INSULIN HUMULIN R 100 UNIT/ML 3ML SQ SCH ×8 (06:32→21:53)
[2022-06-04 08:00] VITALS: BP 153/72
[2022-06-04] MEDS ORDERED: MAGNESIUM 2GM PREMIX 50ML 50 ML IV ONE (08:54)
[2022-06-04] MEDS ORDERED: MAGNESIUM 2GM PREMIX 50ML 50 ML IV PRN (09:00)
[2022-06-04 12:00] VITALS: BP 140/62
[2022-06-04] MEDS: LINEZOLID 600 MG/ISO-OSM 300 ML IV SCH (15:28)
[2022-06-04 16:00] VITALS: BP 149/57
[2022-06-04 19:57] LABS: APPEARANCE,URINE CLEAR (CLEAR); BILIRUBIN,URINE NEGATIVE (NEGATIVE); COLOR,URINE LIGHT-YELLOW (YELLOW); GLUCOSE, URINE (UA) TRACE mg/dL (NEGATIVE); KETONES,URINE NEGATIVE (NEGATIVE); LEUKOCYTE ESTERASE ,URINE 25 Leu/uL (NEGATIVE); NITRATE,URINE NEGATIVE (NEGATIVE); OCCULT BLOOD,URINE NEGATIVE (NEGATIVE); PH,URINE 5.5 (5.0-8.0); PROTEIN,URINE 10 mg/dL (NEGATIVE); UROBILINOGEN,URINE 0.2 mg/dL (0.2-1.0)
[2022-06-04 20:00] VITALS: BP 147/69
[2022-06-04 20:01] LABS: BACTERIA,URINE FEW /HPF (None Seen); SQUAMOUS EPITHELIAL CELL,UR MOD /HPF (0-2)
[2022-06-04 20:02] LABS: CREATININE,URINE RANDOM 46 mg/dL (30-135)
[2022-06-04] MEDS: SIMVASTATIN 20 MG TABLET PO SCH (20:52)
[2022-06-04] MEDS: RANOLAZINE 500 MG TAB.SR.12H PO SCH (20:52)
[2022-06-04] MEDS: FAMOTIDINE 20MG TAB PO SCH (20:52)
[2022-06-04] MEDS: CARVEDILOL 12.5 MG TABLET PO SCH (20:54)
[2022-06-04] MEDS: ATORVASTATIN 40 MG TABLET PO SCH (20:54)
[2022-06-04] MEDS: FUROSEMIDE 40 MG TABLET PO SCH (20:54)
[2022-06-04] MEDS: INSULIN HUMULIN 70/30 100 UNIT/ML 3ML SQ SCH (20:55)
[2022-06-04] MEDS ORDERED: FUROSEMIDE 40 MG TABLET PO SCH (21:00)
[2022-06-05] VITALS: BP 144/60
[2022-06-05] MEDS: LINEZOLID 600 MG/ISO-OSM 300 ML IV SCH ×2 (01:12→12:43)
[2022-06-05 03:52] VITALS: BP 130/58
[2022-06-05] MEDS: ZOSYN 3.375GM +NS 50ML IV SCH ×2 (04:09→16:45)
[2022-06-05] MEDS: HEPARIN 5,000 UNIT VIAL SQ SCH ×2 (04:10→16:39)
[2022-06-05 05:27] LABS: BASOPHILS % (AUTO) 0.8 % (0.0-5.0); EOSINOPHILS % (AUTO) 1.3 % (0.0-8.0); HEMATOCRIT 29.2 % (36-48); LYMPHOCYTES % (AUTO) 17.7 % (21.0-51.0); MEAN CORPUSCULAR HEMOGLOBIN 30.6 pg (27.0-33.0); MEAN CORPUSCULAR HGB CONC 33.2 g/dL (32.0-36.0); MEAN CORPUSCULAR VOLUME 92.1 fL (79-99); MONOCYTES % (AUTO) 11.1 % (3.0-13.0); NEUTROPHILS % (AUTO) 68.8 % (40.0-77.0); PLATELET COUNT (AUTO) 169 K/uL (130-400); RED BLOOD CELL COUNT(AUTO) 3.17 MIL/uL (4.00-5.50); RED CELL DISTRIBUTION WIDTH 13.6 % (11.0-15.5); WHITE BLOOD COUNT (AUTO) 6.4 K/uL (4.8-10.8)
[2022-06-05 05:43] LABS: ALANINE AMINOTRANSFERASE 14 U/L (12-78); ALBUMIN 2.5 g/dL (3.5-5.0); ASPARTATE AMINOTRANSFERASE 25 U/L (10-37); CARBON DIOXIDE 25 mmol/L (21-32); CHLORIDE 93 mmol/L (101-111); CREATININE 2.4 mg/dL (0.5-1.5); GLOMERULAR FILTR. RATE CALC 21 mL/min (>60); GLUCOSE,RANDOM 317 mg/dL (70-105); POTASSIUM 4.7 mmol/L (3.5-5.1); SODIUM SERUM 127 mmol/L (136-145); TOTAL PROTEIN, SERUM 7.1 g/dL (6.0-8.3)
[2022-06-05 05:48] LABS: CRP QUANTITATIVE < 2.00 mg/L (0.00-9.0)
[2022-06-05 05:52] LABS: UREA NITROGEN, BLOOD 84 mg/dL (7-18)
[2022-06-05] MEDS: INSULIN HUMULIN R 100 UNIT/ML 3ML SQ SCH ×8 (05:58→21:00)
[2022-06-05] MEDS: LEVOTHYROXINE 150 MCG TABLET PO SCH (06:00)
[2022-06-05 08:00] VITALS: BP 139/49
[2022-06-05] MEDS: INSULIN HUMULIN 70/30 100 UNIT/ML 3ML SQ SCH ×2 (08:43→20:41)
[2022-06-05] MEDS: RANOLAZINE 500 MG TAB.SR.12H PO SCH ×2 (08:48→20:14)
[2022-06-05] MEDS: FUROSEMIDE 40 MG TABLET PO SCH (08:49)
[2022-06-05] MEDS: ASPIRIN 81MG CHEW TAB PO SCH (08:49)
[2022-06-05] MEDS: CARVEDILOL 12.5 MG TABLET PO SCH ×2 (08:51→20:40)
[2022-06-05] MEDS ORDERED: LOSARTAN 50 MG TABLET PO SCH (09:00)
[2022-06-05] MEDS ORDERED: ASPIRIN 81 MG EC TAB PO SCH (09:00)
[2022-06-05 12:00] VITALS: BP 117/43
[2022-06-05 16:00] VITALS: BP 128/48
[2022-06-05 20:00] VITALS: BP 122/60
[2022-06-05] MEDS: ATORVASTATIN 40 MG TABLET PO SCH (20:14)
[2022-06-05] MEDS: SIMVASTATIN 20 MG TABLET PO SCH (20:14)
[2022-06-05] MEDS: FAMOTIDINE 20MG TAB PO SCH (20:14)
[2022-06-06] VITALS: BP 124/62
[2022-06-06] MEDS: LINEZOLID 600 MG/ISO-OSM 300 ML IV SCH ×2 (01:19→13:28)
[2022-06-06] MEDS: ZOSYN 3.375GM +NS 50ML IV SCH ×2 (03:18→16:36)
[2022-06-06] MEDS: HEPARIN 5,000 UNIT VIAL SQ SCH ×2 (03:23→15:30)
[2022-06-06 04:00] VITALS: BP 127/54
[2022-06-06 04:47] LABS: BASOPHILS % (AUTO) 0.6 % (0.0-5.0); EOSINOPHILS % (AUTO) 1.3 % (0.0-8.0); HEMATOCRIT 31.1 % (36-48); LYMPHOCYTES % (AUTO) 15.9 % (21.0-51.0); MEAN CORPUSCULAR HEMOGLOBIN 30.7 pg (27.0-33.0); MEAN CORPUSCULAR HGB CONC 33.1 g/dL (32.0-36.0); MEAN CORPUSCULAR VOLUME 92.6 fL (79-99); MONOCYTES % (AUTO) 9.9 % (3.0-13.0); NEUTROPHILS % (AUTO) 71.9 % (40.0-77.0); PLATELET COUNT (AUTO) 189 K/uL (130-400); RED BLOOD CELL COUNT(AUTO) 3.36 MIL/uL (4.00-5.50); RED CELL DISTRIBUTION WIDTH 13.6 % (11.0-15.5); WHITE BLOOD COUNT (AUTO) 7.2 K/uL (4.8-10.8)
[2022-06-06 05:04] LABS: CREATININE 2.4 mg/dL (0.5-1.5); PHOSPHORUS 3.9 mg/dL (2.5-4.9); POTASSIUM 5.5 mmol/L (3.5-5.1)
[2022-06-06 05:06] LABS: % IRON SATURATION 20.2 % (22-44)
[2022-06-06] MEDS: LEVOTHYROXINE 150 MCG TABLET PO SCH (06:02)
[2022-06-06] MEDS: INSULIN HUMULIN R 100 UNIT/ML 3ML SQ SCH ×8 (06:02→20:35)
[2022-06-06 07:30] VITALS: BP 123/69
[2022-06-06] MEDS: RANOLAZINE 500 MG TAB.SR.12H PO SCH ×2 (08:07→20:18)
[2022-06-06] MEDS: CARVEDILOL 12.5 MG TABLET PO SCH ×2 (08:08→20:18)
[2022-06-06] MEDS: ASPIRIN 81MG CHEW TAB PO SCH (08:08)
[2022-06-06] MEDS: INSULIN HUMULIN 70/30 100 UNIT/ML 3ML SQ SCH ×2 (08:09→20:21)
[2022-06-06 11:30] VITALS: BP 133/44
[2022-06-06] MEDS: IRON SUCROSE COMPLEX 100 MG/5 ML VIAL IVP SCH (12:35)
[2022-06-06 16:08] VITALS: BP 140/41
[2022-06-06] MEDS: ATORVASTATIN 40 MG TABLET PO SCH (20:18)
[2022-06-06] MEDS: FAMOTIDINE 20MG TAB PO SCH (20:18)
[2022-06-06] MEDS: SIMVASTATIN 20 MG TABLET PO SCH (20:18)
[2022-06-06 20:27] VITALS: BP 140/62
[2022-06-07] VITALS (8 sets, daily range): BP systolic 120–158; BP diastolic 34–72
[2022-06-07] MEDS: LINEZOLID 600 MG/ISO-OSM 300 ML IV SCH ×2 (00:45→13:05)
[2022-06-07] MEDS ORDERED: DEXTROSE 50%-WATER 50 ML DISP.SYRIN IV ONE (01:22)
[2022-06-07] MEDS ORDERED: GLUCAGON 1MG KIT 1 MG ML IM PRN (01:30)
[2022-06-07] MEDS ORDERED: DEXTROSE 50%-WATER 50 ML DISP.SYRIN IV PRN (01:30)
[2022-06-07] MEDS: HEPARIN 5,000 UNIT VIAL SQ SCH ×2 (03:19→15:52)
[2022-06-07] MEDS: ZOSYN 3.375GM +NS 50ML IV SCH ×2 (03:20→15:53)
[2022-06-07 04:05] LABS: BASOPHILS % (AUTO) 0.5 % (0.0-5.0); EOSINOPHILS % (AUTO) 1.5 % (0.0-8.0); HEMATOCRIT 28.2 % (36-48); LYMPHOCYTES % (AUTO) 10.5 % (21.0-51.0); MEAN CORPUSCULAR HEMOGLOBIN 30.3 pg (27.0-33.0); MEAN CORPUSCULAR VOLUME 91.9 fL (79-99); MONOCYTES % (AUTO) 9.8 % (3.0-13.0); NEUTROPHILS % (AUTO) 77.4 % (40.0-77.0); PLATELET COUNT (AUTO) 170 K/uL (130-400); RED BLOOD CELL COUNT(AUTO) 3.07 MIL/uL (4.00-5.50); RED CELL DISTRIBUTION WIDTH 13.4 % (11.0-15.5); WHITE BLOOD COUNT (AUTO) 6.6 K/uL (4.8-10.8)
[2022-06-07 04:11] LABS: CREATININE 2.5 mg/dL (0.5-1.5); POTASSIUM 5.1 mmol/L (3.5-5.1)
[2022-06-07] MEDS: LEVOTHYROXINE 150 MCG TABLET PO SCH (05:56)
[2022-06-07] MEDS: INSULIN HUMULIN R 100 UNIT/ML 3ML SQ SCH ×4 (05:58→21:00)
[2022-06-07] MEDS: INSULIN HUMULIN 70/30 100 UNIT/ML 3ML SQ SCH ×2 (08:16→21:10)
[2022-06-07] MEDS: CARVEDILOL 12.5 MG TABLET PO SCH ×2 (09:00→21:01)
[2022-06-07] MEDS: ASPIRIN 81MG CHEW TAB PO SCH (09:00)
[2022-06-07] MEDS: RANOLAZINE 500 MG TAB.SR.12H PO SCH ×2 (09:00→21:01)
[2022-06-07] MEDS ORDERED: IRON SUCROSE COMPLEX 100 MG in 0.9%NACL 50ML 50 ML IV SCH (09:00)
[2022-06-07] MEDS: 0.9%NACL 1000ML 1,000 ML IV SCH (09:30)
[2022-06-07] MEDS: IRON SUCROSE COMPLEX 100 MG/5 ML VIAL IVP SCH (09:54)
[2022-06-07] MEDS: SIMVASTATIN 20 MG TABLET PO SCH (21:00)
[2022-06-07] MEDS: FAMOTIDINE 20MG TAB PO SCH (21:01)
[2022-06-07] MEDS: ATORVASTATIN 40 MG TABLET PO SCH (21:01)
[2022-06-08] VITALS (14 sets, daily range): BP systolic 101–184; BP diastolic 48–84
[2022-06-08] MEDS: 0.9%NACL 1000ML 1,000 ML IV SCH ×2 (02:58→13:41)
[2022-06-08] MEDS: ZOSYN 3.375GM +NS 50ML IV SCH ×2 (02:58→16:56)
[2022-06-08] MEDS: LINEZOLID 600 MG/ISO-OSM 300 ML IV SCH ×2 (02:58→13:49)
[2022-06-08] MEDS: LEVOTHYROXINE 150 MCG TABLET PO SCH (03:19)
[2022-06-08] MEDS: HEPARIN 5,000 UNIT VIAL SQ SCH ×2 (03:19→16:54)
[2022-06-08 04:28] LABS: ALBUMIN 2.2 g/dL (3.5-5.0); CREATININE 2.1 mg/dL (0.5-1.5); POTASSIUM 4.8 mmol/L (3.5-5.1); TOTAL PROTEIN, SERUM 6.5 g/dL (6.0-8.3)
[2022-06-08] MEDS: INSULIN HUMULIN R 100 UNIT/ML 3ML SQ SCH ×4 (07:21→21:15)
[2022-06-08] MEDS: INSULIN HUMULIN 70/30 100 UNIT/ML 3ML SQ SCH ×2 (09:00→21:14)
[2022-06-08] MEDS ORDERED: HEPARIN 10,000 UNIT/10ML (1,000 UNIT/ML) VIAL ONE (09:23)
[2022-06-08] MEDS ORDERED: IODIXANOL 320 MG/ML 100 ML VIAL ONE (09:23)
[2022-06-08] MEDS ORDERED: NITROGLYCERIN 50MG VIAL ONE (09:23)
[2022-06-08] MEDS ORDERED: NICARDIPINE 25MG INJ IV ONE (09:23)
[2022-06-08] MEDS ORDERED: MIDAZOLAM HCL 1 MG/ML 2ML VIAL ONE (09:24)
[2022-06-08] MEDS ORDERED: FENTANYL CITRATE PF 50 MCG/1 ML 2ML VIAL ONE (09:24)
[2022-06-08] MEDS ORDERED: LIDOCAINE HCL 1% 10 ML VIAL ONE ×2 (09:25→09:51)
[2022-06-08] MEDS ORDERED: GLUCAGON 1MG KIT 1 MG ML IM PRN (11:00)
[2022-06-08] MEDS ORDERED: DEXTROSE 50%-WATER 50 ML DISP.SYRIN IV PRN (11:00)
[2022-06-08] MEDS: IRON SUCROSE COMPLEX 100 MG/5 ML VIAL IVP SCH (13:26)
[2022-06-08] MEDS: CARVEDILOL 12.5 MG TABLET PO SCH ×2 (13:27→21:00)
[2022-06-08] MEDS: RANOLAZINE 500 MG TAB.SR.12H PO SCH ×2 (13:28→21:04)
[2022-06-08] MEDS: ASPIRIN 81MG CHEW TAB PO SCH (13:48)
[2022-06-08] MEDS: ATORVASTATIN 40 MG TABLET PO SCH (21:04)
[2022-06-08] MEDS: FAMOTIDINE 20MG TAB PO SCH (21:04)
[2022-06-08] MEDS: SIMVASTATIN 20 MG TABLET PO SCH (21:07)
[2022-06-09] MEDS: LINEZOLID 600 MG/ISO-OSM 300 ML IV SCH ×2 (00:56→14:50)
[2022-06-09] MEDS: 0.9%NACL 1000ML 1,000 ML IV SCH (00:56)
[2022-06-09] MEDS: ZOSYN 3.375GM +NS 50ML IV SCH ×2 (03:37→15:37)
[2022-06-09] MEDS: HEPARIN 5,000 UNIT VIAL SQ SCH ×2 (03:39→15:38)
[2022-06-09 03:51] VITALS: BP 98/54
[2022-06-09 05:23] LABS: ALBUMIN 2.1 g/dL (3.5-5.0); CREATININE 1.8 mg/dL (0.5-1.5); MAGNESIUM 1.8 mg/dL (1.80-2.40); POTASSIUM 4.7 mmol/L (3.5-5.1); TOTAL PROTEIN, SERUM 6.4 g/dL (6.0-8.3)
[2022-06-09] MEDS: LEVOTHYROXINE 150 MCG TABLET PO SCH (06:16)
[2022-06-09] MEDS: INSULIN HUMULIN R 100 UNIT/ML 3ML SQ SCH ×4 (06:17→20:27)
[2022-06-09 08:00] VITALS: BP 114/50
[2022-06-09] MEDS: IRON SUCROSE COMPLEX 100 MG/5 ML VIAL IVP SCH (08:41)
[2022-06-09] MEDS: CARVEDILOL 12.5 MG TABLET PO SCH ×2 (08:41→20:43)
[2022-06-09] MEDS: ASPIRIN 81MG CHEW TAB PO SCH (08:41)
[2022-06-09] MEDS: RANOLAZINE 500 MG TAB.SR.12H PO SCH ×2 (08:41→20:43)
[2022-06-09] MEDS: INSULIN HUMULIN 70/30 100 UNIT/ML 3ML SQ SCH ×2 (08:43→20:53)
[2022-06-09 12:00] VITALS: BP 106/76
[2022-06-09] MEDS ORDERED: FUROSEMIDE 40MG VIAL IV SCH (13:30)
[2022-06-09 15:20] VITALS: BP 122/51
[2022-06-09 20:14] VITALS: BP 136/50
[2022-06-09] MEDS: SIMVASTATIN 20 MG TABLET PO SCH (20:44)
[2022-06-09] MEDS: ATORVASTATIN 40 MG TABLET PO SCH (20:44)
[2022-06-09] MEDS: FAMOTIDINE 20MG TAB PO SCH (20:44)
[2022-06-09 23:17] VITALS: BP 118/64
[2022-06-10] MEDS: LINEZOLID 600 MG/ISO-OSM 300 ML IV SCH ×2 (01:29→13:42)
[2022-06-10] MEDS: ZOSYN 3.375GM +NS 50ML IV SCH ×2 (03:01→15:42)
[2022-06-10] MEDS: HEPARIN 5,000 UNIT VIAL SQ SCH ×2 (03:07→15:43)
[2022-06-10 03:42] VITALS: BP 147/66
[2022-06-10 03:52] LABS: BASOPHILS % (AUTO) 0.6 % (0.0-5.0); EOSINOPHILS % (AUTO) 1.2 % (0.0-8.0); HEMATOCRIT 25.3 % (36-48); LYMPHOCYTES % (AUTO) 11.8 % (21.0-51.0); MEAN CORPUSCULAR HEMOGLOBIN 31.1 pg (27.0-33.0); MEAN CORPUSCULAR HGB CONC 33.2 g/dL (32.0-36.0); MEAN CORPUSCULAR VOLUME 93.7 fL (79-99); MONOCYTES % (AUTO) 6.6 % (3.0-13.0); NEUTROPHILS % (AUTO) 79.3 % (40.0-77.0); PLATELET COUNT (AUTO) 136 K/uL (130-400); RED CELL DISTRIBUTION WIDTH 13.9 % (11.0-15.5); WHITE BLOOD COUNT (AUTO) 6.5 K/uL (4.8-10.8)
[2022-06-10 04:18] LABS: ALBUMIN 2.2 g/dL (3.5-5.0); CREATININE 2.3 mg/dL (0.5-1.5); POTASSIUM 5.2 mmol/L (3.5-5.1); TOTAL PROTEIN, SERUM 6.6 g/dL (6.0-8.3)
[2022-06-10 04:38] LABS: B-TYPE NATRIURETIC PEPTIDE 1220 pg/mL (0-100)
[2022-06-10] MEDS: LEVOTHYROXINE 150 MCG TABLET PO SCH (05:55)
[2022-06-10] MEDS: INSULIN HUMULIN R 100 UNIT/ML 3ML SQ SCH ×4 (06:20→21:00)
[2022-06-10 07:10] VITALS: BP 132/66
[2022-06-10] MEDS: IRON SUCROSE COMPLEX 100 MG/5 ML VIAL IVP SCH (07:51)
[2022-06-10] MEDS: ASPIRIN 81MG CHEW TAB PO SCH (07:52)
[2022-06-10] MEDS: RANOLAZINE 500 MG TAB.SR.12H PO SCH ×2 (07:52→19:32)
[2022-06-10] MEDS: CARVEDILOL 12.5 MG TABLET PO SCH ×2 (07:52→19:34)
[2022-06-10] MEDS: FUROSEMIDE 40 MG TABLET PO SCH ×2 (07:52→17:26)
[2022-06-10] MEDS: INSULIN HUMULIN 70/30 100 UNIT/ML 3ML SQ SCH ×2 (07:54→21:00)
[2022-06-10 11:05] VITALS: BP 139/55
[2022-06-10 15:05] VITALS: BP 142/65
[2022-06-10] MEDS: ATORVASTATIN 40 MG TABLET PO SCH (19:32)
[2022-06-10] MEDS: FAMOTIDINE 20MG TAB PO SCH (19:32)
[2022-06-10] MEDS: SIMVASTATIN 20 MG TABLET PO SCH (19:33)
[2022-06-10 20:00] VITALS: BP 147/55
[2022-06-11] VITALS (7 sets, daily range): BP systolic 120–146; BP diastolic 48–111
[2022-06-11] MEDS: LINEZOLID 600 MG/ISO-OSM 300 ML IV SCH ×2 (00:49→15:51)
[2022-06-11] MEDS: HEPARIN 5,000 UNIT VIAL SQ SCH ×2 (03:30→15:58)
[2022-06-11] MEDS: ZOSYN 3.375GM +NS 50ML IV SCH ×2 (03:43→15:51)
[2022-06-11] MEDS: LEVOTHYROXINE 150 MCG TABLET PO SCH (05:31)
[2022-06-11] MEDS: INSULIN HUMULIN R 100 UNIT/ML 3ML SQ SCH ×4 (06:02→21:48)
[2022-06-11 06:19] LABS: BASOPHILS % (AUTO) 0.5 % (0.0-5.0); EOSINOPHILS % (AUTO) 1.4 % (0.0-8.0); HEMATOCRIT 25.4 % (36-48); MEAN CORPUSCULAR HEMOGLOBIN 30.2 pg (27.0-33.0); MEAN CORPUSCULAR HGB CONC 33.1 g/dL (32.0-36.0); MEAN CORPUSCULAR VOLUME 91.4 fL (79-99); MONOCYTES % (AUTO) 5.3 % (3.0-13.0); NEUTROPHILS % (AUTO) 75.5 % (40.0-77.0); PLATELET COUNT (AUTO) 129 K/uL (130-400); RED BLOOD CELL COUNT(AUTO) 2.78 MIL/uL (4.00-5.50); RED CELL DISTRIBUTION WIDTH 13.9 % (11.0-15.5); WHITE BLOOD COUNT (AUTO) 5.8 K/uL (4.8-10.8)
[2022-06-11 06:30] LABS: INR 1.03 (0.85-1.15); PROTHROMBIN TIME 11.2 SEC (9.6-11.6)
[2022-06-11 06:32] LABS: PARTIAL THROMBOPLASTIN TIME 34.5 SEC (26.3-35.5)
[2022-06-11 06:33] LABS: ALBUMIN 2.3 g/dL (3.5-5.0); CREATININE 2.1 mg/dL (0.5-1.5); POTASSIUM 4.9 mmol/L (3.5-5.1); TOTAL PROTEIN, SERUM 6.7 g/dL (6.0-8.3)
[2022-06-11 06:59] LABS: B-TYPE NATRIURETIC PEPTIDE 1590 pg/mL (0-100)
[2022-06-11] MEDS: ASPIRIN 81MG CHEW TAB PO SCH (07:21)
[2022-06-11] MEDS: RANOLAZINE 500 MG TAB.SR.12H PO SCH ×2 (07:53→21:46)
[2022-06-11] MEDS: CARVEDILOL 12.5 MG TABLET PO SCH ×2 (07:53→21:46)
[2022-06-11] MEDS: IRON SUCROSE COMPLEX 100 MG/5 ML VIAL IVP SCH (07:53)
[2022-06-11] MEDS: FUROSEMIDE 40 MG TABLET PO SCH ×2 (07:53→16:04)
[2022-06-11] MEDS: INSULIN HUMULIN 70/30 100 UNIT/ML 3ML SQ SCH ×2 (07:54→21:47)
[2022-06-11] MEDS ORDERED: CEFAZOLIN SODIUM 1 GM VIAL ONE (08:29)
[2022-06-11] MEDS ORDERED: PROPOFOL 10 MG/ML 20ML VIAL IV ONE ×2 (09:52→12:07)
[2022-06-11] MEDS ORDERED: FENTANYL CITRATE PF 50 MCG/1 ML 5ML AMP IV ONE (11:53)
[2022-06-11] MEDS ORDERED: SUCCINYLCHOLINE CHLORIDE 20 MG/ML 10 ML VIAL ONE (12:07)
[2022-06-11] MEDS ORDERED: DEXAMETHASONE SOD PHOSPHATE 10MG/ML 1ML VIAL ONE (12:07)
[2022-06-11] MEDS ORDERED: ONDANSETRON 4MG INJ ONE (12:07)
[2022-06-11] MEDS ORDERED: LIDOCAINE PF 100MG/5ML (2%) SYRINGE 5ML ONE (12:07)
[2022-06-11] MEDS ORDERED: GLYCOPYRROLATE 1 MG/5 ML SYRINGE ONE (12:07)
[2022-06-11] MEDS ORDERED: NEOSTIGMINE 5MG/5ML SYR IV ONE (12:07)
[2022-06-11] MEDS ORDERED: ROCURONIUM 10MG/1ML SYR 10 MG/ML ML ONE (12:08)
[2022-06-11] MEDS ORDERED: MIDAZOLAM HCL 1 MG/ML 2ML VIAL ONE (12:08)
[2022-06-11] MEDS ORDERED: PROPOFOL 1000 MG/100 ML 100 ML IV ONE (12:10)
[2022-06-11] MEDS ORDERED: FENTANYL CITRATE PF 50 MCG/1 ML 20ML VIAL IJ ONE (12:13)
[2022-06-11] MEDS ORDERED: PHENYLEPHRINE HCL 10 MG/ML 1ML VIAL IV ONE (12:15)
[2022-06-11] MEDS: SIMVASTATIN 20 MG TABLET PO SCH (21:46)
[2022-06-11] MEDS: FAMOTIDINE 20MG TAB PO SCH (21:46)
[2022-06-12] MEDS: LINEZOLID 600 MG/ISO-OSM 300 ML IV SCH ×2 (01:38→14:18)
[2022-06-12] MEDS ORDERED: PROPOFOL 10 MG/ML 20ML VIAL IV ONE ×2 (02:06→06:32)
[2022-06-12] MEDS: ZOSYN 3.375GM +NS 50ML IV SCH ×2 (03:32→16:24)
[2022-06-12] MEDS: HEPARIN 5,000 UNIT VIAL SQ SCH ×2 (03:33→15:15)
[2022-06-12 04:00] VITALS: BP 127/56
[2022-06-12 04:41] LABS: BASOPHILS % (AUTO) 0.9 % (0.0-5.0); EOSINOPHILS % (AUTO) 1.6 % (0.0-8.0); HEMATOCRIT 26.5 % (36-48); LYMPHOCYTES % (AUTO) 18.3 % (21.0-51.0); MEAN CORPUSCULAR HEMOGLOBIN 30.1 pg (27.0-33.0); MEAN CORPUSCULAR HGB CONC 32.8 g/dL (32.0-36.0); MEAN CORPUSCULAR VOLUME 91.7 fL (79-99); MONOCYTES % (AUTO) 6.5 % (3.0-13.0); NEUTROPHILS % (AUTO) 72.3 % (40.0-77.0); PLATELET COUNT (AUTO) 118 K/uL (130-400); RED BLOOD CELL COUNT(AUTO) 2.89 MIL/uL (4.00-5.50); RED CELL DISTRIBUTION WIDTH 13.8 % (11.0-15.5); WHITE BLOOD COUNT (AUTO) 5.6 K/uL (4.8-10.8)
[2022-06-12 04:53] LABS: ALBUMIN 2.4 g/dL (3.5-5.0); POTASSIUM 4.3 mmol/L (3.5-5.1); TOTAL PROTEIN, SERUM 6.9 g/dL (6.0-8.3)
[2022-06-12 05:24] LABS: HEMOGLOBIN A1C 9.2 % (4.0-6.0)
[2022-06-12 05:28] LABS: B-TYPE NATRIURETIC PEPTIDE 1840 pg/mL (0-100)
[2022-06-12] MEDS: LEVOTHYROXINE 150 MCG TABLET PO SCH (06:51)
[2022-06-12] MEDS: INSULIN HUMULIN R 100 UNIT/ML 3ML SQ SCH ×4 (07:30→21:52)
[2022-06-12 08:10] VITALS: BP 114/51
[2022-06-12] MEDS: INSULIN HUMULIN 70/30 100 UNIT/ML 3ML SQ SCH ×2 (09:00→21:54)
[2022-06-12] MEDS: CARVEDILOL 12.5 MG TABLET PO SCH (09:00)
[2022-06-12] MEDS: ASPIRIN 81MG CHEW TAB PO SCH (09:32)
[2022-06-12] MEDS: IRON SUCROSE COMPLEX 100 MG/5 ML VIAL IVP SCH (09:32)
[2022-06-12] MEDS: FUROSEMIDE 40 MG TABLET PO SCH ×2 (09:33→17:03)
[2022-06-12] MEDS: RANOLAZINE 500 MG TAB.SR.12H PO SCH ×2 (09:33→21:46)
[2022-06-12 11:14] VITALS: BP 141/60
[2022-06-12 16:05] VITALS: BP 140/61
[2022-06-12 20:28] VITALS: BP 120/65
[2022-06-12] MEDS: SIMVASTATIN 20 MG TABLET PO SCH (21:45)
[2022-06-12] MEDS: CARVEDILOL 6.25 MG TABLET PO SCH (21:46)
[2022-06-12] MEDS: FAMOTIDINE 20MG TAB PO SCH (21:46)
[2022-06-13 00:26] VITALS: BP 113/82
[2022-06-13] MEDS: LINEZOLID 600 MG/ISO-OSM 300 ML IV SCH ×2 (01:16→13:21)
[2022-06-13] MEDS: ZOSYN 3.375GM +NS 50ML IV SCH ×2 (03:42→16:07)
[2022-06-13 03:47] VITALS: BP 153/74
[2022-06-13] MEDS: INSULIN HUMULIN R 100 UNIT/ML 3ML SQ SCH ×4 (05:39→21:12)
[2022-06-13 06:15] LABS: BASOPHILS % (AUTO) 0.8 % (0.0-5.0); HEMATOCRIT 25.5 % (36-48); LYMPHOCYTES % (AUTO) 21.2 % (21.0-51.0); MEAN CORPUSCULAR HEMOGLOBIN 30.6 pg (27.0-33.0); MEAN CORPUSCULAR HGB CONC 33.7 g/dL (32.0-36.0); MEAN CORPUSCULAR VOLUME 90.7 fL (79-99); MONOCYTES % (AUTO) 5.5 % (3.0-13.0); NEUTROPHILS % (AUTO) 70.1 % (40.0-77.0); PLATELET COUNT (AUTO) 107 K/uL (130-400); RED BLOOD CELL COUNT(AUTO) 2.81 MIL/uL (4.00-5.50); RED CELL DISTRIBUTION WIDTH 13.7 % (11.0-15.5); WHITE BLOOD COUNT (AUTO) 5.1 K/uL (4.8-10.8)
[2022-06-13] MEDS: LEVOTHYROXINE 150 MCG TABLET PO SCH (06:30)
[2022-06-13 06:32] LABS: ALBUMIN 2.3 g/dL (3.5-5.0); CREATININE 2.2 mg/dL (0.5-1.5); POTASSIUM 4.2 mmol/L (3.5-5.1); TOTAL PROTEIN, SERUM 6.7 g/dL (6.0-8.3)
[2022-06-13 06:43] LABS: B-TYPE NATRIURETIC PEPTIDE 1260 pg/mL (0-100)
[2022-06-13 08:08] VITALS: BP 121/52
[2022-06-13] MEDS: HEPARIN 5,000 UNIT VIAL SQ SCH ×2 (09:18→21:12)
[2022-06-13] MEDS: RANOLAZINE 500 MG TAB.SR.12H PO SCH ×2 (09:25→21:07)
[2022-06-13] MEDS: ASPIRIN 81MG CHEW TAB PO SCH (09:26)
[2022-06-13] MEDS: FUROSEMIDE 40 MG TABLET PO SCH ×2 (09:26→17:30)
[2022-06-13] MEDS: CARVEDILOL 6.25 MG TABLET PO SCH ×2 (09:27→21:08)
[2022-06-13] MEDS: IRON SUCROSE COMPLEX 100 MG/5 ML VIAL IVP SCH ×2 (09:27→11:36)
[2022-06-13 11:05] VITALS: BP 144/66
[2022-06-13 16:08] VITALS: BP 167/72
[2022-06-13 20:41] VITALS: BP 144/51
[2022-06-13] MEDS: SIMVASTATIN 20 MG TABLET PO SCH (21:07)
[2022-06-13] MEDS: FAMOTIDINE 20MG TAB PO SCH (21:07)
[2022-06-13] MEDS: INSULIN GLARGINE 100 UNITS/ML 10 ML VIAL SQ SCH (21:12)
[2022-06-14] VITALS (26 sets, daily range): BP systolic 97–141; BP diastolic 6–79
[2022-06-14] MEDS: LINEZOLID 600 MG/ISO-OSM 300 ML IV SCH ×2 (01:02→13:12)
[2022-06-14] MEDS: ZOSYN 3.375GM +NS 50ML IV SCH ×2 (03:18→16:09)
[2022-06-14] MEDS ORDERED: CEFAZOLIN SODIUM 1 GM VIAL ONE ×2 (04:44→06:45)
[2022-06-14] MEDS: CARVEDILOL 6.25 MG TABLET PO SCH ×2 (05:26→21:00)
[2022-06-14] MEDS: LEVOTHYROXINE 150 MCG TABLET PO SCH (05:26)
[2022-06-14] MEDS: INSULIN HUMULIN R 100 UNIT/ML 3ML SQ SCH ×7 (05:55→20:58)
[2022-06-14 06:07] LABS: HEMATOCRIT 25.3 % (36-48); MEAN CORPUSCULAR HEMOGLOBIN 30.6 pg (27.0-33.0); RED BLOOD CELL COUNT(AUTO) 2.81 MIL/uL (4.00-5.50); RED CELL DISTRIBUTION WIDTH 13.7 % (11.0-15.5); WHITE BLOOD COUNT (AUTO) 5.4 K/uL (4.8-10.8)
[2022-06-14 06:26] LABS: PROTHROMBIN TIME 10.9 SEC (9.6-11.6)
[2022-06-14 06:27] LABS: CREATININE 2.3 mg/dL (0.5-1.5); PARTIAL THROMBOPLASTIN TIME 38.4 SEC (26.3-35.5)
[2022-06-14] MEDS ORDERED: ACETAMINOPHEN 325 MG TAB PO PRN (08:00)
[2022-06-14] MEDS: FUROSEMIDE 40 MG TABLET PO SCH ×2 (08:11→16:41)
[2022-06-14] MEDS: RANOLAZINE 500 MG TAB.SR.12H PO SCH ×2 (08:11→20:56)
[2022-06-14] MEDS: HEPARIN 5,000 UNIT VIAL SQ SCH ×2 (08:11→20:57)
[2022-06-14] MEDS ORDERED: SUCCINYLCHOLINE CHLORIDE 20 MG/ML 10 ML VIAL ONE (08:17)
[2022-06-14] MEDS ORDERED: MIDAZOLAM HCL 1 MG/ML 2ML VIAL ONE (08:18)
[2022-06-14] MEDS ORDERED: FENTANYL CITRATE PF 50 MCG/1 ML 2ML VIAL ONE (08:18)
[2022-06-14] MEDS ORDERED: PROPOFOL 10 MG/ML 20ML VIAL IV ONE (08:18)
[2022-06-14] MEDS ORDERED: ROCURONIUM 10MG/1ML SYR 10 MG/ML ML ONE (08:18)
[2022-06-14] MEDS ORDERED: CEFAZOLIN SODIUM 2 GM VIAL IVPB ONE (08:30)
[2022-06-14] MEDS: ASPIRIN 81MG CHEW TAB PO SCH (09:00)
[2022-06-14] MEDS: IRON SUCROSE COMPLEX 100 MG/5 ML VIAL IVP SCH (09:00)
[2022-06-14] MEDS: ISOSORBIDE MONO 30MG SR TAB PO SCH (09:00)
[2022-06-14] MEDS ORDERED: EPHEDRINE SULFATE 50 MG/ML AMPULE ONE (09:27)
[2022-06-14] MEDS ORDERED: GLYCOPYRROLATE 1 MG/5 ML SYRINGE ONE (10:02)
[2022-06-14] MEDS ORDERED: NEOSTIGMINE 5MG/5ML SYR IV ONE (10:02)
[2022-06-14] MEDS: TRAMADOL HCL 50 MG TABLET PO PRN ×2 (12:02→17:35)
[2022-06-14 16:53] LABS: APPEARANCE,URINE CLEAR (CLEAR); BILIRUBIN,URINE NEGATIVE (NEGATIVE); COLOR,URINE LIGHT-YELLOW (YELLOW); GLUCOSE, URINE (UA) NEGATIVE (NEGATIVE); KETONES,URINE NEGATIVE (NEGATIVE); LEUKOCYTE ESTERASE ,URINE NEGATIVE Leu/uL (NEGATIVE); NITRATE,URINE NEGATIVE (NEGATIVE); OCCULT BLOOD,URINE NEGATIVE (NEGATIVE); PH,URINE 5.5 (5.0-8.0); PROTEIN,URINE NEGATIVE (NEGATIVE); UROBILINOGEN,URINE 0.2 mg/dL (0.2-1.0)
[2022-06-14 16:54] LABS: MUCUS,URINE RARE LPF (None Seen); WBC,URINE 0-1 /HPF (0-1)
[2022-06-14] MEDS: SIMVASTATIN 20 MG TABLET PO SCH (20:55)
[2022-06-14] MEDS: FAMOTIDINE 20MG TAB PO SCH (20:55)
[2022-06-14] MEDS: INSULIN GLARGINE 100 UNITS/ML 10 ML VIAL SQ SCH (21:00)
[2022-06-15] VITALS (44 sets, daily range): BP systolic 82–131; BP diastolic 27–65
[2022-06-15] MEDS: LINEZOLID 600 MG/ISO-OSM 300 ML IV SCH ×2 (01:34→13:11)
[2022-06-15 04:03] LABS: BASOPHILS % (AUTO) 0.3 % (0.0-5.0); EOSINOPHILS % (AUTO) 0.3 % (0.0-8.0); HEMATOCRIT 21.4 % (36-48); MEAN CORPUSCULAR HGB CONC 32.2 g/dL (32.0-36.0); NEUTROPHILS % (AUTO) 86.9 % (40.0-77.0); PLATELET COUNT (AUTO) 92 K/uL (130-400); RED CELL DISTRIBUTION WIDTH 13.7 % (11.0-15.5); WHITE BLOOD COUNT (AUTO) 6.6 K/uL (4.8-10.8)
[2022-06-15 04:21] LABS: POTASSIUM 4.1 mmol/L (3.5-5.1)
[2022-06-15] MEDS: ZOSYN 3.375GM +NS 50ML IV SCH ×2 (04:22→16:52)
[2022-06-15] MEDS: LEVOTHYROXINE 150 MCG TABLET PO SCH (06:30)
[2022-06-15] MEDS: INSULIN HUMULIN R 100 UNIT/ML 3ML SQ SCH ×7 (06:59→20:01)
[2022-06-15] MEDS ORDERED: POTASSIUM PHOS 15 mMOL+NS250ML 250 ML IV PRN (07:30)
[2022-06-15] MEDS ORDERED: LIDOCAINE HCL 1% 20 ML VIAL ONE (07:59)
[2022-06-15] MEDS ORDERED: BUPIVACAINE/PF 0.5% 30ML VIAL ONE (07:59)
[2022-06-15] MEDS: IRON SUCROSE COMPLEX 100 MG/5 ML VIAL IVP SCH (08:56)
[2022-06-15] MEDS: CARVEDILOL 6.25 MG TABLET PO SCH ×2 (09:00→19:57)
[2022-06-15] MEDS: FUROSEMIDE 40 MG TABLET PO SCH ×2 (09:00→16:52)
[2022-06-15] MEDS: ASPIRIN 81MG CHEW TAB PO SCH (09:00)
[2022-06-15] MEDS: HEPARIN 5,000 UNIT VIAL SQ SCH ×2 (09:00→20:01)
[2022-06-15] MEDS: ISOSORBIDE MONO 30MG SR TAB PO SCH (09:00)
[2022-06-15] MEDS: RANOLAZINE 500 MG TAB.SR.12H PO SCH ×2 (09:00→19:58)
[2022-06-15] MEDS: TRAMADOL HCL 50 MG TABLET PO PRN (13:25)
[2022-06-15] MEDS ORDERED: PROPOFOL 1000 MG/100 ML 100 ML IV ONE (13:25)
[2022-06-15] MEDS ORDERED: FENTANYL CITRATE PF 50 MCG/1 ML 2ML VIAL ONE (15:30)
[2022-06-15] MEDS ORDERED: MIDAZOLAM HCL 1 MG/ML 2ML VIAL ONE (15:30)
[2022-06-15] MEDS: FAMOTIDINE 20MG TAB PO SCH (19:58)
[2022-06-15] MEDS: SIMVASTATIN 20 MG TABLET PO SCH (19:58)
[2022-06-15] MEDS: INSULIN GLARGINE 100 UNITS/ML 10 ML VIAL SQ SCH (20:02)
[2022-06-16] VITALS (24 sets, daily range): BP systolic 71–137; BP diastolic 38–67
[2022-06-16] MEDS: LINEZOLID 600 MG/ISO-OSM 300 ML IV SCH ×2 (02:12→14:10)
[2022-06-16 03:30] LABS: MEAN CORPUSCULAR HEMOGLOBIN 31.1 pg (27.0-33.0); MEAN CORPUSCULAR HGB CONC 33.9 g/dL (32.0-36.0); MEAN CORPUSCULAR VOLUME 91.7 fL (79-99); PLATELET COUNT (AUTO) 72 K/uL (130-400); RED BLOOD CELL COUNT(AUTO) 1.93 MIL/uL (4.00-5.50); WHITE BLOOD COUNT (AUTO) 6.6 K/uL (4.8-10.8)
[2022-06-16 03:33] LABS: HEMATOCRIT 17.7 % (36-48)
[2022-06-16 03:53] LABS: ALBUMIN 2.1 g/dL (3.5-5.0); CREATININE 2.2 mg/dL (0.5-1.5); POTASSIUM 4.7 mmol/L (3.5-5.1); TOTAL PROTEIN, SERUM 6.1 g/dL (6.0-8.3)
[2022-06-16] MEDS: ZOSYN 3.375GM +NS 50ML IV SCH ×2 (03:54→16:14)
[2022-06-16] MEDS: TRAMADOL HCL 50 MG TABLET PO PRN (04:08)
[2022-06-16] MEDS: LEVOTHYROXINE 150 MCG TABLET PO SCH (06:23)
[2022-06-16] MEDS: INSULIN HUMULIN R 100 UNIT/ML 3ML SQ SCH ×7 (06:27→21:00)
[2022-06-16] MEDS: RANOLAZINE 500 MG TAB.SR.12H PO SCH ×2 (08:34→21:20)
[2022-06-16] MEDS: CARVEDILOL 6.25 MG TABLET PO SCH ×2 (08:35→21:21)
[2022-06-16] MEDS: ASPIRIN 81MG CHEW TAB PO SCH (08:35)
[2022-06-16] MEDS: FUROSEMIDE 40 MG TABLET PO SCH ×2 (08:35→18:10)
[2022-06-16] MEDS: IRON SUCROSE COMPLEX 100 MG/5 ML VIAL IVP SCH (08:36)
[2022-06-16] MEDS: HEPARIN 5,000 UNIT VIAL SQ SCH ×2 (08:36→21:22)
[2022-06-16] MEDS: ISOSORBIDE MONO 30MG SR TAB PO SCH (08:36)
[2022-06-16 12:03] LABS: HEMATOCRIT 21.8 % (36-48)
[2022-06-16] MEDS ORDERED: ZOSYN 3.375GM+NS 50ML 50 ML ONE (16:13)
[2022-06-16] MEDS ORDERED: EPOETIN ALFA-EPBX (NON-ESRD) 10,000 UNIT/ML VIAL SQ SCH (17:30)
[2022-06-16] MEDS: INSULIN GLARGINE 100 UNITS/ML 10 ML VIAL SQ SCH (21:00)
[2022-06-16] MEDS: SIMVASTATIN 20 MG TABLET PO SCH (21:20)
[2022-06-16] MEDS: FAMOTIDINE 20MG TAB PO SCH (21:21)
[2022-06-17] VITALS (7 sets, daily range): BP systolic 103–125; BP diastolic 52–64
[2022-06-17] MEDS: LINEZOLID 600 MG/ISO-OSM 300 ML IV SCH ×2 (01:27→15:05)
[2022-06-17 03:51] LABS: MEAN CORPUSCULAR HEMOGLOBIN 29.4 pg (27.0-33.0); PLATELET COUNT (AUTO) 64 K/uL (130-400); RED BLOOD CELL COUNT(AUTO) 2.28 MIL/uL (4.00-5.50); RED CELL DISTRIBUTION WIDTH 16.8 % (11.0-15.5); WHITE BLOOD COUNT (AUTO) 6.6 K/uL (4.8-10.8)
[2022-06-17 03:58] LABS: CREATININE 2.7 mg/dL (0.5-1.5); MAGNESIUM 1.5 mg/dL (1.80-2.40); POTASSIUM 4.8 mmol/L (3.5-5.1)
[2022-06-17] MEDS: ZOSYN 3.375GM +NS 50ML IV SCH (04:17)
[2022-06-17 04:46] LABS: HEMATOCRIT 20.3 % (36-48)
[2022-06-17] MEDS: LEVOTHYROXINE 150 MCG TABLET PO SCH (05:36)
[2022-06-17] MEDS: INSULIN HUMULIN R 100 UNIT/ML 3ML SQ SCH ×7 (06:14→21:30)
[2022-06-17] MEDS: INSULIN GLARGINE 100 UNITS/ML 10 ML VIAL SQ SCH (09:00)
[2022-06-17] MEDS: IRON SUCROSE COMPLEX 100 MG/5 ML VIAL IVP SCH (09:02)
[2022-06-17] MEDS: FUROSEMIDE 40 MG TABLET PO SCH ×2 (09:04→18:35)
[2022-06-17] MEDS: ISOSORBIDE MONO 30MG SR TAB PO SCH (09:04)
[2022-06-17] MEDS: RANOLAZINE 500 MG TAB.SR.12H PO SCH ×2 (09:04→21:28)
[2022-06-17] MEDS: ASPIRIN 81MG CHEW TAB PO SCH (09:05)
[2022-06-17] MEDS: CARVEDILOL 6.25 MG TABLET PO SCH ×2 (09:05→21:28)
[2022-06-17 09:10] LABS: HEMATOCRIT 20.6 % (36-48)
[2022-06-17] MEDS: HEPARIN 5,000 UNIT VIAL SQ SCH ×2 (09:13→21:29)
[2022-06-17] MEDS ORDERED: PHARMACY COMMUNICATION MISC SCH (14:30)
[2022-06-17] MEDS: EPOETIN ALFA-EPBX (NON-ESRD) 10,000 UNIT/ML VIAL SQ NR (18:36)
[2022-06-17 18:49] LABS: HEMATOCRIT 21.4 % (36-48)
[2022-06-17] MEDS: TRAMADOL HCL 50 MG TABLET PO PRN ×2 (21:27→21:52)
[2022-06-17] MEDS: SIMVASTATIN 20 MG TABLET PO SCH (21:28)
[2022-06-17] MEDS: FAMOTIDINE 20MG TAB PO SCH (21:29)
[2022-06-18] VITALS: BP 112/51
[2022-06-18] MEDS: LINEZOLID 600 MG/ISO-OSM 300 ML IV SCH (01:32)
[2022-06-18 04:00] VITALS: BP 117/53
[2022-06-18 05:00] LABS: BASOPHILS % (AUTO) 0.4 % (0.0-5.0); EOSINOPHILS % (AUTO) 0.7 % (0.0-8.0); LYMPHOCYTES % (AUTO) 12.9 % (21.0-51.0); MEAN CORPUSCULAR HEMOGLOBIN 29.3 pg (27.0-33.0); MEAN CORPUSCULAR HGB CONC 34.5 g/dL (32.0-36.0); MEAN CORPUSCULAR VOLUME 84.9 fL (79-99); MONOCYTES % (AUTO) 2.2 % (3.0-13.0); NEUTROPHILS % (AUTO) 83.4 % (40.0-77.0); PLATELET COUNT (AUTO) 56 K/uL (130-400); RED BLOOD CELL COUNT(AUTO) 2.59 MIL/uL (4.00-5.50); RED CELL DISTRIBUTION WIDTH 15.7 % (11.0-15.5); WHITE BLOOD COUNT (AUTO) 5.5 K/uL (4.8-10.8)
[2022-06-18 05:34] LABS: CREATININE 2.8 mg/dL (0.5-1.5); POTASSIUM 4.7 mmol/L (3.5-5.1)
[2022-06-18] MEDS: INSULIN HUMULIN R 100 UNIT/ML 3ML SQ SCH ×7 (06:14→20:52)
[2022-06-18] MEDS: LEVOTHYROXINE 150 MCG TABLET PO SCH (06:25)
[2022-06-18 08:00] VITALS: BP 107/67
[2022-06-18] MEDS: IRON SUCROSE COMPLEX 100 MG/5 ML VIAL IVP SCH (09:37)
[2022-06-18] MEDS: RANOLAZINE 500 MG TAB.SR.12H PO SCH ×2 (09:38→20:47)
[2022-06-18] MEDS: ASPIRIN 81MG CHEW TAB PO SCH (09:38)
[2022-06-18] MEDS: ISOSORBIDE MONO 30MG SR TAB PO SCH (09:38)
[2022-06-18] MEDS: TRAMADOL HCL 50 MG TABLET PO PRN (09:39)
[2022-06-18] MEDS: CARVEDILOL 6.25 MG TABLET PO SCH ×2 (09:40→20:48)
[2022-06-18] MEDS: INSULIN GLARGINE 100 UNITS/ML 10 ML VIAL SQ SCH (09:47)
[2022-06-18] MEDS: FUROSEMIDE 40 MG TABLET PO SCH (09:48)
[2022-06-18] MEDS: HEPARIN 5,000 UNIT VIAL SQ SCH ×2 (09:48→20:48)
[2022-06-18 11:00] VITALS: BP 118/60
[2022-06-18 14:58] LABS: INR 1.01 (0.85-1.15)
[2022-06-18 14:59] LABS: PARTIAL THROMBOPLASTIN TIME 42.1 SEC (26.3-35.5)
[2022-06-18 16:30] VITALS: BP 135/62
[2022-06-18 20:31] VITALS: BP 112/48
[2022-06-18] MEDS: FAMOTIDINE 20MG TAB PO SCH (20:48)
[2022-06-18] MEDS: SIMVASTATIN 20 MG TABLET PO SCH (20:48)
[2022-06-19] VITALS (7 sets, daily range): BP systolic 99–116; BP diastolic 38–58
[2022-06-19] MEDS: LEVOTHYROXINE 150 MCG TABLET PO SCH (05:40)
[2022-06-19] MEDS: TRAMADOL HCL 50 MG TABLET PO PRN (05:42)
[2022-06-19 05:59] LABS: HEMATOCRIT 22.1 % (36-48); MEAN CORPUSCULAR HEMOGLOBIN 29.8 pg (27.0-33.0); MEAN CORPUSCULAR HGB CONC 33.9 g/dL (32.0-36.0); MEAN CORPUSCULAR VOLUME 87.7 fL (79-99); PLATELET COUNT (AUTO) 49 K/uL (130-400); RED BLOOD CELL COUNT(AUTO) 2.52 MIL/uL (4.00-5.50); RED CELL DISTRIBUTION WIDTH 15.1 % (11.0-15.5); WHITE BLOOD COUNT (AUTO) 5.3 K/uL (4.8-10.8)
[2022-06-19 06:31] LABS: CREATININE 3.2 mg/dL (0.5-1.5); MAGNESIUM 2.7 mg/dL (1.80-2.40); POTASSIUM 4.4 mmol/L (3.5-5.1); THYROID STIMULATING HORMONE 1.07 uIU/mL (0.36-3.74); TOTAL PROTEIN, SERUM 6.3 g/dL (6.0-8.3); URIC ACID 11.8 mg/dL (2.6-7.2)
[2022-06-19] MEDS: INSULIN HUMULIN R 100 UNIT/ML 3ML SQ SCH ×4 (06:49→21:00)
[2022-06-19 06:52] LABS: LYMPHOCYTES % (MANUAL) 3 % (22-44); MAN.DIFF COMMENT-IMPRESSION MANUAL DIFFERENTIAL; SEGMENTED NEUTROPHILS % 97 % (40-70)
[2022-06-19 06:53] LABS: PLATELET MORPHOLOGY COMMENT DECREASED
[2022-06-19 09:16] LABS: INR 0.97 (0.85-1.15); PROTHROMBIN TIME 10.6 SEC (9.6-11.6)
[2022-06-19] MEDS: IRON SUCROSE COMPLEX 100 MG/5 ML VIAL IVP SCH (13:37)
[2022-06-19] MEDS: ASPIRIN 81MG CHEW TAB PO SCH (13:38)
[2022-06-19] MEDS: ISOSORBIDE MONO 30MG SR TAB PO SCH (13:40)
[2022-06-19] MEDS: CARVEDILOL 6.25 MG TABLET PO SCH ×2 (13:40→21:52)
[2022-06-19] MEDS: RANOLAZINE 500 MG TAB.SR.12H PO SCH ×2 (13:40→21:51)
[2022-06-19] MEDS: INSULIN GLARGINE 100 UNITS/ML 10 ML VIAL SQ SCH (13:46)
[2022-06-19] MEDS: HEPARIN 5,000 UNIT VIAL SQ SCH ×2 (13:47→21:55)
[2022-06-19] MEDS: FAMOTIDINE 20MG TAB PO SCH (21:51)
[2022-06-19] MEDS: SIMVASTATIN 20 MG TABLET PO SCH (21:51)
[2022-06-20 04:10] VITALS: BP 110/45
[2022-06-20] MEDS: LEVOTHYROXINE 150 MCG TABLET PO SCH (06:04)
[2022-06-20] MEDS: INSULIN HUMULIN R 100 UNIT/ML 3ML SQ SCH ×4 (07:30→21:00)
[2022-06-20 08:00] VITALS: BP 123/48
[2022-06-20] MEDS: ASPIRIN 81MG CHEW TAB PO SCH (09:55)
[2022-06-20] MEDS: ISOSORBIDE MONO 30MG SR TAB PO SCH (09:56)
[2022-06-20] MEDS: CARVEDILOL 6.25 MG TABLET PO SCH ×2 (09:58→21:00)
[2022-06-20] MEDS: IRON SUCROSE COMPLEX 100 MG/5 ML VIAL IVP SCH (10:07)
[2022-06-20] MEDS: HEPARIN 5,000 UNIT VIAL SQ SCH ×2 (10:15→21:00)
[2022-06-20] MEDS: RANOLAZINE 500 MG TAB.SR.12H PO SCH ×2 (10:17→21:33)
[2022-06-20] MEDS: INSULIN GLARGINE 100 UNITS/ML 10 ML VIAL SQ SCH (10:38)
[2022-06-20 11:00] VITALS: BP 106/47
[2022-06-20 16:00] VITALS: BP 104/60
[2022-06-20 20:04] VITALS: BP 107/46
[2022-06-20] MEDS: FAMOTIDINE 20MG TAB PO SCH (21:33)
[2022-06-20] MEDS: SIMVASTATIN 20 MG TABLET PO SCH (21:33)
[2022-06-20 23:40] VITALS: BP 104/51
[2022-06-21 04:12] VITALS: BP 127/66
[2022-06-21 04:13] LABS: BASOPHILS % (AUTO) 0.2 % (0.0-5.0); EOSINOPHILS % (AUTO) 0.2 % (0.0-8.0); LYMPHOCYTES % (AUTO) 8.1 % (21.0-51.0); MEAN CORPUSCULAR HEMOGLOBIN 29.4 pg (27.0-33.0); MEAN CORPUSCULAR HGB CONC 33.8 g/dL (32.0-36.0); MONOCYTES % (AUTO) 2.1 % (3.0-13.0); NEUTROPHILS % (AUTO) 88.6 % (40.0-77.0); PLATELET COUNT (AUTO) 42 K/uL (130-400); RED BLOOD CELL COUNT(AUTO) 2.38 MIL/uL (4.00-5.50); RED CELL DISTRIBUTION WIDTH 15.1 % (11.0-15.5); WHITE BLOOD COUNT (AUTO) 4.7 K/uL (4.8-10.8)
[2022-06-21 04:19] LABS: HEMATOCRIT 20.7 % (36-48)
[2022-06-21 04:28] LABS: CREATININE 3.5 mg/dL (0.5-1.5); PHOSPHORUS 4.5 mg/dL (2.5-4.9); POTASSIUM 4.6 mmol/L (3.5-5.1)
[2022-06-21] MEDS: LEVOTHYROXINE 150 MCG TABLET PO SCH (07:16)
[2022-06-21] MEDS: INSULIN HUMULIN R 100 UNIT/ML 3ML SQ SCH ×4 (07:17→21:00)
[2022-06-21 07:30] VITALS: BP 111/98
[2022-06-21] MEDS: HEPARIN 5,000 UNIT VIAL SQ SCH ×2 (09:00→21:00)
[2022-06-21] MEDS: IRON SUCROSE COMPLEX 100 MG/5 ML VIAL IVP SCH (09:35)
[2022-06-21] MEDS: ASPIRIN 81MG CHEW TAB PO SCH (09:35)
[2022-06-21] MEDS: CARVEDILOL 6.25 MG TABLET PO SCH ×2 (09:36→21:07)
[2022-06-21] MEDS: ISOSORBIDE MONO 30MG SR TAB PO SCH (09:36)
[2022-06-21] MEDS: RANOLAZINE 500 MG TAB.SR.12H PO SCH ×2 (09:39→21:06)
[2022-06-21] MEDS: INSULIN GLARGINE 100 UNITS/ML 10 ML VIAL SQ SCH (09:47)
[2022-06-21 11:30] VITALS: BP 105/50
[2022-06-21 20:00] VITALS: BP 116/54
[2022-06-21] MEDS: SIMVASTATIN 20 MG TABLET PO SCH (21:06)
[2022-06-21] MEDS: FAMOTIDINE 20MG TAB PO SCH (21:07)
[2022-06-22] VITALS: BP 119/50
[2022-06-22 04:00] VITALS: BP 137/54
[2022-06-22 04:57] LABS: MEAN CORPUSCULAR HEMOGLOBIN 29.5 pg (27.0-33.0); MEAN CORPUSCULAR HGB CONC 33.8 g/dL (32.0-36.0); MEAN CORPUSCULAR VOLUME 87.2 fL (79-99); PLATELET COUNT (AUTO) 37 K/uL (130-400); RED BLOOD CELL COUNT(AUTO) 2.34 MIL/uL (4.00-5.50); RED CELL DISTRIBUTION WIDTH 15.1 % (11.0-15.5); WHITE BLOOD COUNT (AUTO) 4.6 K/uL (4.8-10.8)
[2022-06-22 05:03] LABS: CREATININE 3.3 mg/dL (0.5-1.5); POTASSIUM 4.4 mmol/L (3.5-5.1)
[2022-06-22 05:08] LABS: HEMATOCRIT 20.4 % (36-48)
[2022-06-22 05:37] LABS: BAND NEUTROPHILS % (MANUAL) 3 % (0-2); LYMPHOCYTES % (MANUAL) 9 % (22-44); MAN.DIFF COMMENT-IMPRESSION MANUAL DIFFERENTIAL; MONOCYTES % (MANUAL) 1 % (2-9); SEGMENTED NEUTROPHILS % 87 % (40-70)
[2022-06-22 05:38] LABS: PLATELET MORPHOLOGY COMMENT MARKED DECREASE
[2022-06-22] MEDS: LEVOTHYROXINE 150 MCG TABLET PO SCH (06:56)
[2022-06-22] MEDS: INSULIN HUMULIN R 100 UNIT/ML 3ML SQ SCH ×4 (06:56→21:00)
[2022-06-22 08:41] VITALS: BP 122/51
[2022-06-22] MEDS: HEPARIN 5,000 UNIT VIAL SQ SCH (09:00)
[2022-06-22] MEDS: ASPIRIN 81MG CHEW TAB PO SCH (09:23)
[2022-06-22] MEDS: IRON SUCROSE COMPLEX 100 MG/5 ML VIAL IVP SCH (09:23)
[2022-06-22] MEDS: RANOLAZINE 500 MG TAB.SR.12H PO SCH ×2 (09:23→21:53)
[2022-06-22] MEDS: CARVEDILOL 6.25 MG TABLET PO SCH ×2 (09:24→21:54)
[2022-06-22] MEDS: ISOSORBIDE MONO 30MG SR TAB PO SCH (09:24)
[2022-06-22] MEDS: INSULIN GLARGINE 100 UNITS/ML 10 ML VIAL SQ SCH (09:30)
[2022-06-22 11:00] VITALS: BP 122/56
[2022-06-22] MEDS ORDERED: 0.9% NACL 500ML IV.SOLN 500 ML IV ONE (11:28)
[2022-06-22] MEDS ORDERED: ISOS30TA92 PO (14:32)
[2022-06-22] MEDS ORDERED: INSU3INS3 SQ (14:32)
[2022-06-22] MEDS ORDERED: ATOR10 PO (14:32)
[2022-06-22] MEDS ORDERED: FURO20TA6 PO (14:32)
[2022-06-22] MEDS ORDERED: LINA5TAB PO (14:32)
[2022-06-22] MEDS ORDERED: CARV6.25 PO (14:34)
[2022-06-22 15:30] VITALS: BP 120/50
[2022-06-22 20:00] VITALS: BP 114/51
[2022-06-22] MEDS: SIMVASTATIN 20 MG TABLET PO SCH (21:53)
[2022-06-22] MEDS: FAMOTIDINE 20MG TAB PO SCH (21:54)
[2022-06-23] VITALS: BP 128/56
[2022-06-23 04:00] VITALS: BP 129/60
[2022-06-23] MEDS: LEVOTHYROXINE 150 MCG TABLET PO SCH (06:36)
[2022-06-23 06:47] LABS: HEMATOCRIT 26.4 % (36-48); MEAN CORPUSCULAR HEMOGLOBIN 29.5 pg (27.0-33.0); MEAN CORPUSCULAR HGB CONC 34.1 g/dL (32.0-36.0); MEAN CORPUSCULAR VOLUME 86.6 fL (79-99); RED BLOOD CELL COUNT(AUTO) 3.05 MIL/uL (4.00-5.50); RED CELL DISTRIBUTION WIDTH 14.8 % (11.0-15.5); WHITE BLOOD COUNT (AUTO) 4.2 K/uL (4.8-10.8)
[2022-06-23 06:52] LABS: CREATININE 2.9 mg/dL (0.5-1.5); POTASSIUM 4.7 mmol/L (3.5-5.1)
[2022-06-23] MEDS: INSULIN HUMULIN R 100 UNIT/ML 3ML SQ SCH ×4 (07:01→20:29)
[2022-06-23 07:30] VITALS: BP 111/50
[2022-06-23] MEDS: IRON SUCROSE COMPLEX 100 MG/5 ML VIAL IVP SCH (09:56)
[2022-06-23] MEDS: ISOSORBIDE MONO 30MG SR TAB PO SCH (09:56)
[2022-06-23] MEDS: RANOLAZINE 500 MG TAB.SR.12H PO SCH ×2 (09:56→20:27)
[2022-06-23] MEDS: ASPIRIN 81MG CHEW TAB PO SCH (09:56)
[2022-06-23] MEDS: CARVEDILOL 6.25 MG TABLET PO SCH ×2 (09:57→20:28)
[2022-06-23] MEDS: INSULIN GLARGINE 100 UNITS/ML 10 ML VIAL SQ SCH (10:07)
[2022-06-23 11:30] VITALS: BP 124/51
[2022-06-23 16:59] VITALS: BP 102/43
[2022-06-23 20:00] VITALS: BP 139/66
[2022-06-23] MEDS: SIMVASTATIN 20 MG TABLET PO SCH (20:27)
[2022-06-23] MEDS: FAMOTIDINE 20MG TAB PO SCH (20:27)
[2022-06-24] VITALS: BP 113/84
[2022-06-24 04:00] VITALS: BP 94/44
[2022-06-24] MEDS: INSULIN HUMULIN R 100 UNIT/ML 3ML SQ SCH ×3 (06:05→16:30)
[2022-06-24] MEDS: LEVOTHYROXINE 150 MCG TABLET PO SCH (06:14)
[2022-06-24 07:30] VITALS: BP 125/55
[2022-06-24] MEDS: RANOLAZINE 500 MG TAB.SR.12H PO SCH (08:48)
[2022-06-24] MEDS: ISOSORBIDE MONO 30MG SR TAB PO SCH (08:48)
[2022-06-24] MEDS: IRON SUCROSE COMPLEX 100 MG/5 ML VIAL IVP SCH (08:49)
[2022-06-24] MEDS: CARVEDILOL 6.25 MG TABLET PO SCH (08:49)
[2022-06-24] MEDS: ASPIRIN 81MG CHEW TAB PO SCH (08:49)
[2022-06-24] MEDS: INSULIN GLARGINE 100 UNITS/ML 10 ML VIAL SQ SCH (08:56)
[2022-06-24 10:39] LABS: MEAN CORPUSCULAR HEMOGLOBIN 29.9 pg (27.0-33.0); MEAN CORPUSCULAR HGB CONC 33.8 g/dL (32.0-36.0); MEAN CORPUSCULAR VOLUME 88.4 fL (79-99); RED BLOOD CELL COUNT(AUTO) 2.94 MIL/uL (4.00-5.50); RED CELL DISTRIBUTION WIDTH 14.8 % (11.0-15.5); WHITE BLOOD COUNT (AUTO) 4.5 K/uL (4.8-10.8)
[2022-06-24 10:50] LABS: CREATININE 2.5 mg/dL (0.5-1.5); POTASSIUM 4.8 mmol/L (3.5-5.1)
[2022-06-24 11:30] VITALS: BP 118/50
[2022-06-24] MEDS: EPOETIN ALFA-EPBX (NON-ESRD) 10,000 UNIT/ML VIAL SQ NR (16:41)
[2022-06-30] MEDS ORDERED: EPOETIN ALFA-EPBX (NON-ESRD) 10,000 UNIT/ML VIAL SQ SCH (09:00)
== END 2022-06-24 19:20 | disposition home health service (06) | DRG 252 ==
LOC: EDH 12:32 → DIRECT 12:33 → 3CH 17:08 → 3AH 06-11 15:29 → 2CV 06-14 10:08 → 2BH 06-14 14:37 → 2AH 06-16 15:12 → 3DH 06-17 16:39
PROVIDERS: ADMIT Hospitalist; ATTEND Hospitalist
PROC: B41DZZZ Fluoroscopy of Aorta and Bilateral Lower Extremity Arteries (ICD-10-PCS; principal; 2022-06-08)
PROC: 041K0ZL Bypass Right Femoral Artery to Popliteal Artery, Open Approach (ICD-10-PCS; 2022-06-14)
PROC: 0Y6R0Z0 Detachment at Right 2nd Toe, Complete, Open Approach (ICD-10-PCS; 2022-06-15)
PROC: 30233N1 Transfusion of Nonautologous Red Blood Cells into Peripheral Vein, Percutaneous Approach (ICD-10-PCS; 2022-06-16)
DX: E11.52 Type 2 diabetes mellitus with diabetic peripheral angiopathy with gangrene (principal); I50.23 Acute on chronic systolic (congestive) heart failure; N17.0 Acute kidney failure with tubular necrosis; E46 Unspecified protein-calorie malnutrition; E87.1 Hypo-osmolality and hyponatremia; I13.2 Hypertensive heart and chronic kidney disease with heart failure and with stage 5 chronic kidney disease, or end stage renal disease; N18.5 Chronic kidney disease, stage 5; E72.51 Non-ketotic hyperglycinemia; E87.0 Hyperosmolality and hypernatremia; M86.8X7 Other osteomyelitis, ankle and foot; Z20.822 Contact with and (suspected) exposure to COVID-19; E78.5 Hyperlipidemia, unspecified; E11.42 Type 2 diabetes mellitus with diabetic polyneuropathy; E03.9 Hypothyroidism, unspecified; E11.65 Type 2 diabetes mellitus with hyperglycemia; I25.5 Ischemic cardiomyopathy; I25.10 Atherosclerotic heart disease of native coronary artery without angina pectoris; D63.8 Anemia in other chronic diseases classified elsewhere; D69.6 Thrombocytopenia, unspecified; E11.319 Type 2 diabetes mellitus with unspecified diabetic retinopathy without macular edema; E66.9 Obesity, unspecified; E78.00 Pure hypercholesterolemia, unspecified; E11.22 Type 2 diabetes mellitus with diabetic chronic kidney disease; E83.42 Hypomagnesemia; E87.5 Hyperkalemia; F17.200 Nicotine dependence, unspecified, uncomplicated; Z53.9 Procedure and treatment not carried out, unspecified reason; Z95.810 Presence of automatic (implantable) cardiac defibrillator; Z79.02 Long term (current) use of antithrombotics/antiplatelets; Z79.4 Long term (current) use of insulin; Z79.82 Long term (current) use of aspirin; Z79.84 Long term (current) use of oral hypoglycemic drugs; Z79.899 Other long term (current) drug therapy; Z83.3 Family history of diabetes mellitus; Z68.28 Body mass index [BMI] 28.0-28.9, adult
CPT/HCPCS: 36246; 36415; 36430; 71045; 73630; 75716; 76770; 78315; 80048; 80053; 81001; 82570; 82948; 83036; 83540; 83550; 83735; 83880; 84100; 84156; 84443; 84550; 85014; 85018; 85025; 85027; 85610; 85730; 86140; 86850; 86900; 86901; 86923; 87088; 87635; 93005; 93925; 97039; 99156; 99157; A9503; C1760; C1894; G0378; J0330; J0690; J1100; J1644; J1756; J1815; J1940; J2001; J2020; J2250; J2370; J2405; J2543; J2704; J2710; J3010; J3475; J3490; J7030; J7040; J7070; P9016; Q9967